=== PATIENT | male | born 1955 | race Caucasian/White ===

== ENCOUNTER 2020-01-25 07:50 | Outpatient (REF) | payer OTHER, SELFPAY | END 2020-01-25 07:51 | disposition home or self-care (01) | LOC: HO.WFDLDS 07:50 | PROVIDERS: Visit Provider Internal Medicine | DX: Z20.828 Contact with and (suspected) exposure to other viral communicable diseases (principal) | CPT/HCPCS: C9803; U0003 ==

== ENCOUNTER 2020-04-18 07:29 | Outpatient (REF) | payer OTHER, SELFPAY ==
[2020-04-18 12:08] LABS: Cholesterol 193 mg/dL; HDL Cholesterol 35 mg/dL; LDL Cholesterol Calculated 130 mg/dl; Triglycerides 140 mg/dL
[2020-04-18 13:07] LABS: Estimated Average Glucose 163 mg/dL; Hemoglobin A1c % 7.3 %
== END 2020-04-18 07:30 | disposition home or self-care (01) ==
LOC: HO.MANLR 07:29
PROVIDERS: PCP Internal Medicine; Visit Provider Internal Medicine
DX: E11.9 Type 2 diabetes mellitus without complications (principal)
CPT/HCPCS: 36415; 80061; 83036

== ENCOUNTER 2020-08-01 07:34 | Outpatient (REF) | payer OTHER, SELFPAY ==
[2020-08-01 11:56] LABS: Estimated Average Glucose 160 mg/dL; Hemoglobin A1c % 7.2 %
[2020-08-01 12:03] LABS: Cholesterol 201 mg/dL; HDL Cholesterol 34 mg/dL; LDL Cholesterol Calculated 139 mg/dl; Triglycerides 140 mg/dL
== END 2020-08-01 07:35 | disposition home or self-care (01) ==
LOC: HO.MANLDS 07:34
PROVIDERS: Visit Provider Internal Medicine
DX: E11.9 Type 2 diabetes mellitus without complications (principal)
CPT/HCPCS: 36415; 80061; 83036

== ENCOUNTER 2020-12-04 07:34 | Outpatient (REF) | payer OTHER, SELFPAY ==
[2020-12-04 11:54] LABS: Estimated Average Glucose 166 mg/dL; Hemoglobin A1c % 7.4 %
[2020-12-04 12:13] LABS: Alanine Aminotransferase 14 U/L (0-40); Albumin Level 4.4 g/dL (3.5-5.0); Alkaline Phosphatase 65 U/L (39-117); Anion Gap 13 (12-20); Aspartate Amino Transferase 14 U/L (5-37); Bilirubin Total 0.6 mg/dL (0.0-1.0); Blood Urea Nitrogen 12 mg/dL (9-16); Calcium 9.6 mg/dL (8.4-10.2); Carbon Dioxide 23 mmol/L (22-29); Chloride 104 mmol/L (96-108); Cholesterol 195 mg/dL; Estimated Glomerular Filt Rate > 60; Glucose Fasting 188 mg/dL (60-99); HDL Cholesterol 32 mg/dL; LDL Cholesterol Calculated 131 mg/dl; Potassium 4.2 mmol/L (3.3-5.1); Sodium 136 mmol/L (135-145); Total Protein 7.3 g/dL (6.5-8.0); Triglycerides 162 mg/dL
[2020-12-04 12:19] LABS: Creatinine Urine 95.41 mg/dL; Microalbum/Creatinine Ratio Ur 142.5 ug/mg cr
== END 2020-12-04 07:35 | disposition home or self-care (01) ==
LOC: HO.MANLDS 07:34
PROVIDERS: PCP Internal Medicine; Visit Provider Internal Medicine
DX: E11.9 Type 2 diabetes mellitus without complications (principal)
CPT/HCPCS: 36415; 80053; 80061; 82043; 83036

== ENCOUNTER 2021-03-09 08:35 | Outpatient (REF) | payer OTHER, SELFPAY ==
[2021-03-09 11:38] LABS: Estimated Average Glucose 160 mg/dL; Hemoglobin A1c % 7.2 %
== END 2021-03-09 08:36 | disposition home or self-care (01) ==
LOC: HO.MANLDS 08:35
PROVIDERS: PCP Internal Medicine; Visit Provider Internal Medicine
DX: E11.9 Type 2 diabetes mellitus without complications (principal)
CPT/HCPCS: 36415; 83036

== ENCOUNTER 2021-06-25 07:58 | Outpatient (REF) | payer OTHER, SELFPAY ==
[2021-06-25 11:39] LABS: Estimated Average Glucose 169 mg/dL; Hemoglobin A1c % 7.5 %
== END 2021-06-25 07:59 | disposition home or self-care (01) ==
LOC: HO.MANLDS 07:58
PROVIDERS: PCP Internal Medicine; Visit Provider Internal Medicine
DX: E11.9 Type 2 diabetes mellitus without complications (principal)
CPT/HCPCS: 36415; 83036

== ENCOUNTER 2021-09-12 07:33 | Outpatient (REF) | payer OTHER, SELFPAY ==
[2021-09-12 11:38] LABS: Estimated Average Glucose 174 mg/dL; Hemoglobin A1c % 7.7 %
[2021-09-12 11:51] LABS: Alanine Aminotransferase 20 U/L (0-40); Albumin Level 4.4 g/dL (3.5-5.0); Alkaline Phosphatase 64 U/L (39-117); Anion Gap 12 (12-20); Aspartate Amino Transferase 17 U/L (5-37); Bilirubin Total 0.6 mg/dL (0.0-1.0); Blood Urea Nitrogen 14 mg/dL (9-16); Calcium 9.7 mg/dL (8.4-10.2); Carbon Dioxide 24 mmol/L (22-29); Chloride 102 mmol/L (96-108); Cholesterol 208 mg/dL; Estimated Glomerular Filt Rate > 60; Glucose Random 219 mg/dL (60-115); HDL Cholesterol 36 mg/dL; LDL Cholesterol Calculated 147 mg/dl; Potassium 4.3 mmol/L (3.3-5.1); Sodium 134 mmol/L (135-145); Total Protein 7.4 g/dL (6.5-8.0); Triglycerides 125 mg/dL
[2021-09-12 12:18] LABS: Creatinine Urine 84.09 mg/dL; Microalbum/Creatinine Ratio Ur 246.1 ug/mg cr
== END 2021-09-12 07:34 | disposition home or self-care (01) ==
LOC: HO.MANLDS 07:33
PROVIDERS: Visit Provider Internal Medicine
DX: E11.9 Type 2 diabetes mellitus without complications (principal)
CPT/HCPCS: 36415; 80053; 80061; 82043; 83036

== ENCOUNTER 2021-12-31 07:54 | Outpatient (REF) | payer OTHER, SELFPAY ==
[2021-12-31 11:45] LABS: Estimated Average Glucose 166 mg/dL; Hemoglobin A1c % 7.4 %
== END 2021-12-31 07:55 | disposition home or self-care (01) ==
LOC: HO.MANLDS 07:54
PROVIDERS: Visit Provider Internal Medicine
DX: E11.9 Type 2 diabetes mellitus without complications (principal)
CPT/HCPCS: 36415; 83036

== ENCOUNTER 2022-05-17 07:38 | Outpatient (REF) | payer OTHER, SELFPAY ==
[2022-05-17 12:19] LABS: Estimated Average Glucose 206 mg/dL; Hemoglobin A1c % 8.8 %
[2022-05-17 12:45] LABS: Alanine Aminotransferase 15 U/L (0-40); Albumin Level 4.2 g/dL (3.5-5.0); Alkaline Phosphatase 70 U/L (39-117); Anion Gap 14 (12-20); Aspartate Amino Transferase 15 U/L (5-37); Bilirubin Total 0.9 mg/dL (0.0-1.0); Blood Urea Nitrogen 12 mg/dL (9-16); Calcium 9.4 mg/dL (8.4-10.2); Carbon Dioxide 24 mmol/L (22-29); Chloride 102 mmol/L (96-108); Cholesterol 214 mg/dL; Estimated Glomerular Filt Rate > 60; Glucose Fasting 209 mg/dL (60-99); HDL Cholesterol 37 mg/dL; LDL Cholesterol Calculated 145 mg/dl; Potassium 4.5 mmol/L (3.3-5.1); Sodium 135 mmol/L (135-145); Total Protein 6.9 g/dL (6.5-8.0); Triglycerides 164 mg/dL
[2022-05-17 13:06] LABS: Creatinine Urine 50.05 mg/dL; Microalbum/Creatinine Ratio Ur 215.7 ug/mg cr
== END 2022-05-17 07:39 | disposition home or self-care (01) ==
LOC: HO.MANLDS 07:38
PROVIDERS: Visit Provider Internal Medicine
DX: E11.9 Type 2 diabetes mellitus without complications (principal)
CPT/HCPCS: 36415; 80053; 80061; 82043; 83036

== ENCOUNTER 2022-09-16 07:47 | Outpatient (REF) | payer OTHER, SELFPAY ==
[2022-09-16 14:49] LABS: Estimated Average Glucose 160 mg/dL; Hemoglobin A1c % 7.2 %
[2022-09-16 14:54] LABS: Alanine Aminotransferase 19 U/L (0-40); Albumin Level 4.1 g/dL (3.5-5.0); Alkaline Phosphatase 67 U/L (39-117); Anion Gap 16 (12-20); Aspartate Amino Transferase 19 U/L (5-37); Bilirubin Total 0.6 mg/dL (0.0-1.0); Blood Urea Nitrogen 15 mg/dL (9-16); Calcium 9.8 mg/dL (8.4-10.2); Carbon Dioxide 20 mmol/L (22-29); Chloride 104 mmol/L (96-108); Cholesterol 182 mg/dL; Estimated Glomerular Filt Rate > 60; Glucose Random 187 mg/dL (60-115); HDL Cholesterol 36 mg/dL; LDL Cholesterol Calculated 114 mg/dl; Potassium 4.5 mmol/L (3.3-5.1); Sodium 135 mmol/L (135-145); Total Protein 7.1 g/dL (6.5-8.0); Triglycerides 160 mg/dL
== END 2022-09-16 07:48 | disposition home or self-care (01) ==
LOC: HO.MANLDS 07:47
PROVIDERS: Visit Provider Internal Medicine
DX: E11.9 Type 2 diabetes mellitus without complications (principal)
CPT/HCPCS: 36415; 80053; 80061; 83036

== ENCOUNTER 2022-12-16 07:47 | Outpatient (REF) | payer OTHER, SELFPAY ==
[2022-12-16 13:29] LABS: Estimated Average Glucose 174 mg/dL; Hemoglobin A1c % 7.7 % (<6.0)
[2022-12-16 13:52] LABS: Alanine Aminotransferase 16 U/L (0-40); Albumin Level 4.4 g/dL (3.5-5.0); Alkaline Phosphatase 60 U/L (39-117); Anion Gap 18 (12-20); Aspartate Amino Transferase 21 U/L (5-37); Bilirubin Total 0.6 mg/dL (0.0-1.0); Blood Urea Nitrogen 20 mg/dL (9-16); Calcium 9.6 mg/dL (8.4-10.2); Carbon Dioxide 21 mmol/L (22-29); Chloride 100 mmol/L (96-108); Cholesterol 245 mg/dL (<200); Estimated Glomerular Filt Rate > 60; Glucose Random 166 mg/dL (60-115); HDL Cholesterol 38 mg/dL (>40); LDL Cholesterol Calculated 152 mg/dL (<100); Potassium 4.1 mmol/L (3.3-5.1); Sodium 135 mmol/L (135-145); Total Protein 7.7 g/dL (6.5-8.0); Triglycerides 279 mg/dL (<150)
== END 2022-12-16 07:48 | disposition home or self-care (01) ==
LOC: HO.MANLDS 07:47
PROVIDERS: Visit Provider Internal Medicine
DX: E11.9 Type 2 diabetes mellitus without complications (principal)
CPT/HCPCS: 36415; 80053; 80061; 83036

== ENCOUNTER 2022-12-27 09:14 | Outpatient (REF) | payer OTHER, SELFPAY ==
--- NOTE | ~2022-12-27 | US_ITS ---
EXAMINATION: US RETROPERITONEAL LIMITED (AORTA) CLINICAL INFORMATION: Hypertension. COMPARISON: None available. TECHNIQUE: Blackmon-scale, color Doppler and spectral Doppler evaluation of the abdominal aorta. FINDINGS: The aorta is normal. The measurements of the aorta in maximum AP and transverse dimensions respectively are as follows: Proximal: 2.8 x 2.3 cm. Mid: 1.7 x 1.6 cm. Distal: 1.8 x 2.2 cm. PSV: 150 cm/s. The measurements of the common iliac arteries in maximum AP dimension are as follows: Right Common Iliac Artery: 1.3 cm. Left Common Iliac Artery: 1.3 cm. 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 No gail aneurysm formation is seen.
== END 2022-12-27 09:15 | disposition home or self-care (01) ==
LOC: HO.US 09:14
PROVIDERS: PCP Internal Medicine; Visit Provider Internal Medicine
DX: I10 Essential (primary) hypertension (principal)
CPT/HCPCS: 76775

== ENCOUNTER 2023-03-14 07:36 | Outpatient (REF) | payer OTHER, SELFPAY ==
[2023-03-14 13:13] LABS: MANUAL DIFF FLAG NO
[2023-03-14 13:31] LABS: Basophils Absolute Auto 0.1 X10*3/uL (0.0-0.2); Basophils Percent Auto 0.7 % (0-2); Eosinophils Absolute Auto 0.1 X10*3/uL (0.0-0.4); Eosinophils Percent Auto 1.1 % (0-4); Hematocrit 49.1 % (42.0-52.0); Hemoglobin 16.4 g/dl (14.0-18.0); Imm Gran Abs Auto 0.06 X10*3/uL (0.00-0.03); Imm Gran Pct Auto 0.6 % (0.0-0.4); Lymphocytes Absolute Auto 1.8 X10*3/uL (1.2-4.9); Lymphocytes Percent Auto 16.1 % (20-40); Mean Corpuscular HGB Conc 33.4 g/dl (31.0-36.0); Mean Corpuscular Hemoglobin 30.7 pg (27.0-33.0); Mean Corpuscular Volume 91.9 fL (80.0-98.0); Mean Platelet Volume 9.4 fL (9.4-12.4); Monocytes Absolute Auto 0.8 X10*3/uL (0.1-1.2); Monocytes Percent Auto 7.6 % (2-11); Neutrophils Absolute Auto 8.1 x10*3/uL (2.0-8.3); Neutrophils Percent Auto 73.9 % (45-73); Platelet Count 348 X10*3/uL (160-400); Red Blood Count 5.34 X10*6/uL (4.60-5.80); Red Cell Distribution Width 13.2 % (11.0-16.0); White Blood Count 10.9 X10*3/uL (4.8-10.8)
[2023-03-14 13:36] LABS: Estimated Average Glucose 180 mg/dL; Hemoglobin A1c % 7.9 % (<6.0)
[2023-03-14 13:53] LABS: Alanine Aminotransferase 18 U/L (0-40); Albumin Level 4.3 g/dL (3.5-5.0); Alkaline Phosphatase 65 U/L (39-117); Anion Gap 16 (12-20); Aspartate Amino Transferase 19 U/L (5-37); Bilirubin Total 0.7 mg/dL (0.0-1.0); Blood Urea Nitrogen 24 mg/dL (9-16); Calcium 9.7 mg/dL (8.4-10.2); Carbon Dioxide 21 mmol/L (22-29); Chloride 100 mmol/L (96-108); Cholesterol 225 mg/dL (<200); Estimated Glomerular Filt Rate > 60; Glucose Random 147 mg/dL (60-115); HDL Cholesterol 40 mg/dL (>40); LDL Cholesterol Calculated 144 mg/dL (<100); Potassium 4.1 mmol/L (3.3-5.1); Sodium 133 mmol/L (135-145); Total Protein 7.7 g/dL (6.5-8.0); Triglycerides 205 mg/dL (<150)
[2023-03-14 14:17] LABS: Creatinine Urine 53.63 mg/dL; Microalbum/Creatinine Ratio Ur 52.2 ug/mg cr (<30)
== END 2023-03-14 07:37 | disposition home or self-care (01) ==
LOC: HO.MANLDS 07:36
PROVIDERS: Visit Provider Internal Medicine
DX: E11.21 Type 2 diabetes mellitus with diabetic nephropathy (principal); E78.5 Hyperlipidemia, unspecified
CPT/HCPCS: 36415; 80053; 80061; 82043; 82570; 83036; 85025

== ENCOUNTER 2023-07-30 07:52 | Outpatient (REF) | payer OTHER, SELFPAY ==
[2023-07-30 13:49] LABS: Estimated Average Glucose 192 mg/dL; Hemoglobin A1c % 8.3 % (<6.0)
== END 2023-07-30 07:53 | disposition home or self-care (01) ==
LOC: HO.MANLDS 07:52
PROVIDERS: Visit Provider Internal Medicine
DX: E78.5 Hyperlipidemia, unspecified (principal); E11.21 Type 2 diabetes mellitus with diabetic nephropathy
CPT/HCPCS: 36415; 83036

== ENCOUNTER 2023-11-17 07:31 | Outpatient (REF) | payer OTHER, SELFPAY ==
[2023-11-17 13:14] LABS: MANUAL DIFF FLAG NO
[2023-11-17 13:28] LABS: Basophils Absolute Auto 0.1 X10*3/uL (0.0-0.2); Basophils Percent Auto 0.8 % (0-2); Eosinophils Absolute Auto 0.2 X10*3/uL (0.0-0.4); Eosinophils Percent Auto 2.1 % (0-4); Hematocrit 48.9 % (42.0-52.0); Hemoglobin 16.5 g/dl (14.0-18.0); Imm Gran Abs Auto 0.04 X10*3/uL (0.00-0.03); Imm Gran Pct Auto 0.5 % (0.0-0.4); Lymphocytes Absolute Auto 1.7 X10*3/uL (1.2-4.9); Lymphocytes Percent Auto 23.5 % (20-40); Mean Corpuscular HGB Conc 33.7 g/dl (31.0-36.0); Mean Corpuscular Hemoglobin 30.7 pg (27.0-33.0); Mean Corpuscular Volume 91.1 fL (80.0-98.0); Monocytes Absolute Auto 0.6 X10*3/uL (0.1-1.2); Neutrophils Absolute Auto 4.7 x10*3/uL (2.0-8.3); Neutrophils Percent Auto 65.1 % (45-73); Platelet Count 333 X10*3/uL (160-400); Red Blood Count 5.37 X10*6/uL (4.60-5.80); Red Cell Distribution Width 13.3 % (11.0-16.0); White Blood Count 7.3 X10*3/uL (4.8-10.8)
[2023-11-17 13:40] LABS: Estimated Average Glucose 163 mg/dL; Hemoglobin A1c % 7.3 % (<6.0)
[2023-11-17 14:01] LABS: Alanine Aminotransferase 17 U/L (0-40); Albumin Level 4.4 g/dL (3.5-5.0); Alkaline Phosphatase 60 U/L (39-117); Anion Gap 14 (12-20); Aspartate Amino Transferase 19 U/L (5-37); Bilirubin Total 0.6 mg/dL (0.0-1.0); Blood Urea Nitrogen 20 mg/dL (9-16); Carbon Dioxide 22 mmol/L (22-29); Chloride 103 mmol/L (96-108); Cholesterol 238 mg/dL (<200); Estimated Glomerular Filt Rate > 60; Glucose Random 118 mg/dL (60-115); HDL Cholesterol 37 mg/dL (>40); LDL Cholesterol Calculated 156 mg/dL (<100); Potassium 4.6 mmol/L (3.3-5.1); Sodium 134 mmol/L (135-145); Total Protein 7.8 g/dL (6.5-8.0); Triglycerides 229 mg/dL (<150)
[2023-11-17 14:47] LABS: Creatinine Urine 42.54 mg/dL; Microalbum/Creatinine Ratio Ur 63.4 ug/mg cr (<30)
== END 2023-11-17 07:32 | disposition home or self-care (01) ==
LOC: HO.MANLDS 07:31
PROVIDERS: Visit Provider Internal Medicine
DX: E11.21 Type 2 diabetes mellitus with diabetic nephropathy (principal); E78.5 Hyperlipidemia, unspecified
CPT/HCPCS: 36415; 80053; 80061; 82043; 82570; 83036; 85025

== ENCOUNTER 2024-03-24 07:00 | Outpatient (REF) | payer OTHER, SELFPAY ==
--- OUTSIDE RECORDS SUMMARY | 2024-03-24 07:03 | XMS_ITS | Clinical Summary ---
Author Organization [facility] Facility Address [address] [facility] [address] [place] [id number] Care Team Providers Care Clerical Warehouseman Name Role Phone Abram Valdez DO Primary Care Provider [phone] Social History Tobacco Use Types Packs/Day Years Used Date Smoking Tobacco: Never Assessed Sex and Gender Information Value Date Recorded Sex Assigned at Not on file Legal Sex Male 4:02 PM EDT Gender Identity Not on file Sexual Orientation Not on file Plan of Treatment Health Maintenance Due Date Last Done Comments Colorectal Cancer Screening: Annual FOBT 2005 Colorectal Cancer Screening: Colonoscopy 2005 Colorectal Cancer Screening: Sigmoidoscopy 2005 Pneumococcal Vaccine: 65+ Ye ars (1 of 1 - PCV) 2021 Influenza Vaccine (#1) 2023 Hepatitis B Vaccine Aged Out No longe r eligible based on patient's age to complete this topic Insurance [employer] Care Teams Clerical Warehouseman Relationship Specialty Start Date End Date Abram Valdez DO [address] [place] [id number] PCP - General Internal Medicine 09/26/21
--- OUTSIDE RECORDS SUMMARY | 2024-03-24 07:03 | XMS_ITS | Data Portability ---
Author Organization [facility] Address [address] [place] [address] Assessment Encounter Date Assessment Date Assessment LastModified by Organization Details LastModified Time 12/18/2022 12/18/2022 [id number] [place] [id number] (TEAM LEAD) [facility] MODERATE MUST MEET 2 OUT OF 3 ELEMENTS: PROBLEMS, DATA OR RISK ELEMENT 1: PROBLEMS ADDRESSED 1 OR MORE CHRONIC ILLNESS WITH EXACERBATION OR 2 OR MORE STABLE CHRONIC ILLNESSES OR 1 UNDIAGNOSED NEW PROBLEM OR 1 ACUTE ILLNESS W/SYMPTOMS OR 1 ACUTE COMPLICATED INJURY ELEMENT 2: DATA MUST MEET 1 OF 3 CATEGORIES CATEGORY 1: REVIEW OF PRIOR EXTERNAL NOTES, REVIEW OF RESULTS, ORDERING OF EACH TEST, ASSESSMENT REQUIRING INDEPENDENT HISTORIAN OR CATEGORY 2: INDEPENDENT INTERPRETATION OF TESTS BY ANOTHER PHYSICIAN OR SPECIALIST OR CATEGORY 3: DISCUSSION OF MGT OR TEST INTERPRETATION W/EXTERNAL PHYSICIAN OR SPECIALIST ELEMENT 3: RISK RISK OF COMPLICATIONS AND/OR MORBIDITY OR MORTALITY OF PATIENT MANAGEMENT PROVIDER MUST THOROUGHLY DOCUMENT EACH ELEMENT THAT IS COVERED Not available 12/18/2022 16:10:26 03/10/2023 03/10/2023 [id number] [place] [id number] (TEAM LEAD) [facility] MODERATE MUST MEET 2 OUT OF 3 ELEMENTS: PROBLEMS, DATA OR RISK ELEMENT 1: PROBLEMS ADDRESSED 1 OR MORE CHRONIC ILLNESS WITH EXACERBATION OR 2 OR MORE STABLE CHRONIC ILLNESSES OR 1 UNDIAGNOSED NEW PROBLEM OR 1 ACUTE ILLNESS W/SYMPTOMS OR 1 ACUTE COMPLICATED INJURY ELEMENT 2: DATA MUST MEET 1 OF 3 CATEGORIES CATEGORY 1: REVIEW OF PRIOR EXTERNAL NOTES, REVIEW OF RESULTS, ORDERING OF EACH TEST, ASSESSMENT REQUIRING INDEPENDENT HISTORIAN OR CATEGORY 2: INDEPENDENT INTERPRETATION OF TESTS BY ANOTHER PHYSICIAN OR SPECIALIST OR CATEGORY 3: DISCUSSION OF MGT OR TEST INTERPRETATION W/EXTERNAL PHYSICIAN OR SPECIALIST ELEMENT 3: RISK RISK OF COMPLICATIONS AND/OR MORBIDITY OR MORTALITY OF PATIENT MANAGEMENT PROVIDER MUST THOROUGHLY DOCUMENT EACH ELEMENT THAT IS COVERED Not available 03/10/2023 15:43:37 11/17/2023 11/17/2023 [id number] [place] [id number] (TEAM LEAD) MDM MODERATE MUST MEET 2 OUT OF 3 ELEMENTS: PROBLEMS, DATA OR RISK ELEMENT 1: PROBLEMS ADDRESSED 1 OR MORE CHRONIC ILLNESS WITH EXACERBATION OR 2 OR MORE STABLE CHRONIC ILLNESSES OR 1 UNDIAGNOSED NEW PROBLEM OR 1 ACUTE ILLNESS W/SYMPTOMS OR 1 ACUTE COMPLICATED INJURY ELEMENT 2: DATA MUST MEET 1 OF 3 CATEGORIES CATEGORY 1: REVIEW OF PRIOR EXTERNAL NOTES, REVIEW OF RESULTS, ORDERING OF EACH TEST, ASSESSMENT REQUIRING INDEPENDENT HISTORIAN OR CATEGORY 2: INDEPENDENT INTERPRETATION OF TESTS BY ANOTHER PHYSICIAN OR SPECIALIST OR CATEGORY 3: DISCUSSION OF MGT OR TEST INTERPRETATION W/EXTERNAL PHYSICIAN OR SPECIALIST ELEMENT 3: RISK RISK OF COMPLICATIONS AND/OR MORBIDITY OR MORTALITY OF PATIENT MANAGEMENT PROVIDER MUST THOROUGHLY DOCUMENT EACH ELEMENT THAT IS COVERED Not available 11/17/2023 16:43:36 03/22/2024 03/22/2024 [id number] [place] [id number] (TEAM LEAD) MDM MODERATE MUST MEET 2 OUT OF 3 ELEMENTS: PROBLEMS, DATA OR RISK ELEMENT 1: PROBLEMS ADDRESSED 1 OR MORE CHRONIC ILLNESS WITH EXACERBATION OR 2 OR MORE STABLE CHRONIC ILLNESSES OR 1 UNDIAGNOSED NEW PROBLEM OR 1 ACUTE ILLNESS W/SYMPTOMS OR 1 ACUTE COMPLICATED INJURY ELEMENT 2: DATA MUST MEET 1 OF 3 CATEGORIES CATEGORY 1: REVIEW OF PRIOR EXTERNAL NOTES, REVIEW OF RESULTS, ORDERING OF EACH TEST, ASSESSMENT REQUIRING INDEPENDENT HISTORIAN OR CATEGORY 2: INDEPENDENT INTERPRETATION OF TESTS BY ANOTHER PHYSICIAN OR SPECIALIST OR CATEGORY 3: DISCUSSION OF MGT OR TEST INTERPRETATION W/EXTERNAL PHYSICIAN OR SPECIALIST ELEMENT 3: RISK RISK OF COMPLICATIONS AND/OR MORBIDITY OR MORTALITY OF PATIENT MANAGEMENT PROVIDER MUST THOROUGHLY DOCUMENT EACH ELEMENT THAT IS COVERED Not available 03/22/2024 10:13:05 Plan of Treatment Reminders Order Date Submit Date Provider Last Modified By Organization Details Last Modified Time Details Appointments None recorded. Lab HbA1c (hemoglobi n A1c), blood 2023 024 [facility], [address] [place] [address], [place], [address], 4 11:19:12 CMP, serum or plasma 2023 024 [facility], [address] [place] [address], [place], [address], 4 11:19:12 microalbum in, urine 2023 024 [facility], [address] [place] [address], [address], 4 11:19:13 HbA1c (hemoglobi n A1c), blood 2023 024 [facility], [address] [place] [address], [address], 4 11:15:13 CMP, serum or plasma 2023 024 [facility], [address] [place] [address], [address], 4 11:19:12 HbA1c (hemoglobi n A1c), blood 2023 024 [facility], [address] [place] [address], [address], 4 11:15:13 lipid panel, serum 2023 024 [facility], [address] [place] [address], [address], 4 11:19:13 CBC w/ auto diff 2023 024 [facility], [address] [place] [address], [address], 4 11:19:13 lipid panel, serum 2023 024 [facility], [address] [place] [address], [address], 4 11:19:13 CBC w/ auto diff 2023 024 [facility], [address] [place] [address], [address], 4 11:19:13 TSH, serum or plasma 2023 024 [facility], [address] [place] [address], [address], 4 15:34:40 HbA1c (hemoglobi n A1c), blood 2023 024 [facility], [address] [place] [address], [address], 4 11:31:51 CMP, serum or plasma 2023 024 [facility], [address] [place] [address], [address], 4 15:34:40 lipid panel, blood 2023 024 [facility], [address] [place] [address], [address], 4 15:34:40 microalbum in, urine 2023 024 [facility], [address] [place] [address], [place], [address], 4 15:34:40 HbA1c (hemoglobi n A1c), blood 2024 025 [facility], [address] [place] [address], [address], 5 10:22:30 CMP, serum or plasma 2024 025 [facility], [address] [place] [address], [address], 5 10:22:29 Referral None recorded. Procedures None recorded. Surgeries None recorded. Imaging exercise stress test - progressiv e exertional dyspnea 2024 025 [facility], [address] [place] [address], [address], 5 10:31:09 Medication Orders Jardiance 25 mg tablet 2022 023 [facility], [address], [place], [address], 3 16:14:45 glimepirid e 4 mg tablet 2023 024 [id number], [address] [place], [address], 4 15:32:13 nitroglyce rin 0.4 mg sublingual tablet 2024 025 [id number], [address] [place], [address], 10:15:52 Patient TargetsNo targets recorded. Patient Instructions Encounter Date Encounter Id Patient Instructions Last Modified By Organization Details Last Modified Time 12/18/2022 [id number] learning about type 2 diabetes Not available 12/18/2022 16:13:29 type 2 diabetes: care instructions Not available 12/18/2022 16:13:29 08/01/2023 [id number] learning about type 2 diabetes Not available 08/01/2023 15:32:11 type 2 diabetes: care instructions Not available 08/01/2023 15:32:11 03/22/2024 [id number] high cholesterol : care instructions Not available 03/22/2024 10:15:50 Reason for Referral None Reported. Results Created Date Observation Date Name Description Value Unit Range Abnormal Flag Note LastModifiedBy Organization Detail LastModifiedTime 12/31/1912/27/2022 US, abdom inal aorta No observ ation record ed. [email or web address] [facility] [address] [facility], [place], [address], 01/15/2023 06:54:51 Result Notes None recorded. Problems Name Problem SNOMED Code Status Onset Date Resolution Date Notes Provider Name and Address Organization Details Recorded Time Diabetic peripheral neuropathy 913917341 Active 2021 Abram Valdez, DO [address] [place] [address], [phone], [facility] 2 16:02:07 Erectile dysfunctio n 989078946 Active 2021 Abram Valdez DO [address] [place] [address], [phone], [facility] 2 16:21:24 Microalbum inuric diabetic nephropath y 534848974 Active 2021 Abram Valdez, DO [address] [place] [address], [phone], [facility] 2 16:23:31 Contractur e of joint of finger 200374722 Active 2022 Abram Valdez [address], [address], [facility] 3 16:28:46 Hyperlipid emia 29443976 Active 2022 Abram Valdez, [address], [address], [facility] 3 16:31:38 Depressive disorder 08448990 Active 2022 Abram Valdez [address], [address], [facility] 3 16:32:43 COVID-19 171974668 Active 2023 HIMANSHU HEALY [address] [place] [address], [address], [facility] 4 09:57:50 Chest pain on exertion 23044259 Active 2024 Abram Valdez [address], [address], [facility] 5 10:13:16 Hypertrigl yceridemia 902134946 Active 2017 Not Available [facility] 0 12:01:56 Type 2 diabetes mellitus 68966393 Active 2017 Not Available [facility] 0 12:01:56 Disorder of vitamin B12 770640898 Active 2017 Not Available [facility] 0 12:01:56 Tremor 46181773 Active 2017 Not Available [facility] 0 12:01:56 Restless legs 56367261 Active 2017 Not Available [facility] 0 12:01:56 Hypertensi ve disorder 25468921 Active 2017 Not Available [facility] 0 12:01:56 Subclinica l hypothyroi dism 89560868 Active 2017 Not Available [facility] 0 12:01:56 Degenerati on of lumbar interverte bral disc 18314351 Active 2017 Not Available [facility] 0 12:01:56 Spinal stenosis of lumbar region 87230483 Active 2017 Not Available [facility] 0 12:01:56 Problem Notes None recorded. Procedures Surgical History None recorded. Imaging Results Imaging Date Name Status LastModified by Organiz ation Details LastModified Time 12/27/2022 US, abdominal aorta completed [facility] [address] [place], [address], 01/15/2023 06:54:51 Procedure Notes None recorded. Medical Equipment None Reported. Allergies No known drug allergies Medications Name Sig Start Date Stop Date Status Note LastModified by Organization Details LastModified Time Prescript ion - Renewal 09/21 completed [facility] Not Available Not Available Not Available cyclobenz aprine 10 mg tablet 07/11 completed Not Available Not Available Not Available amoxicill in 500 mg capsule TAKE 1 CAPSULE BY MOUTH THREE TIMES A DAY 03/22 completed Not Available Not Available Not Available nabumeton e 750 mg tablet TAKE 1 TABLET BY MOUTH TWICE A DAY 07/18 completed Not Available Not Available Not Available sildenafi l 50 mg tablet TAKE 1 TABLET BY MOUTH EVERY DAY FOR 10 DAYS 04/21 completed Not Available Not Available Not Available tramadol 50 mg tablet Take 1 tablet every 6 hours by oral route for 30 days. 11/14 completed Not Available Not Available Not Available sildenafi l 100 mg tablet TAKE 1 TABLET BY MOUTH EVERY DAY FOR 30 DAYS active Not Available Not Available No t Available glimepiri de 2 mg tablet TAKE 1 TABLET BY MOUTH EVERY DAY 07/31 completed Not Available Not Available Not Available carvedilo l 3.125 mg tablet TAKE 1 TABLET BY MOUTH TWICE A DAY active Not Available Not Available No t Available oxycodone -acetamin ophen 5 mg-325 mg tablet TAKE 1 TABLET EVERY 4 TO 6 HOURS NEEDED 11/16 completed Not Available Not Available Not Available gemfibroz il 600 mg tablet TAKE 1 TABLET BY MOUTH TWICE A DAY active Not Available Not Available No t Available cyanocoba armando (vit B-12) 1,000 mcg/mL injection solution INJECT 1 ML INTO THE MUSCLE EVERY 2 WEEKS active Not Available Not Available No t Available metformin 1,000 mg tablet TAKE 1 TABLET BY MOUTH TWICE A DAY active Not Available Not Available No t Available glimepiri de 4 mg tablet TAKE 1 TABLET BY MOUTH EVERY DAY active Not Available Not Available No t Available nitroglyc dany 0.4 mg sublingua l tablet Place 1 tablet by sublingu al route as needed for 30 days. 2024 active Not Available Not Available Not Avai lable gabapenti n 300 mg capsule Take one tablet 3 x day and 2 tablets at nightime . 08/26 completed Not Available Not Available Not Available lisinopri l 5 mg tablet TAKE 1 TABLET BY MOUTH EVERY DAY active Not Available Not Available No t Available ibuprofen 600 mg tablet 1 TABLET EVERY 4 TO 6 HOURS NEEDED active Not Available Not Available No t Available ondansetr on 4 mg disintegr ating tablet PLACE 1 TAB UNDER TONGUE TO DISSOLVE TO HELP NAUSEA EVERY 4-6 HOURS NEEDED NAUSEA FOR 3 DAYS 11/16 completed Not Available Not Available Not Available oxycodone 5 mg tablet 02/03 completed Not Available Not Available Not Available duloxetin e 30 mg capsule,d elayed release TAKE 1 CAPSULE BY MOUTH EVERY DAY active Not Available Not Available No t Available chlorhexi dine gluconate 0.12 % mouthwash SWISH AND SPIT 15 ML IN THE MORNING AND IN THE EVENING FOR 2 WEEKS active Not Available Not Available No t Available Fish Oil 6000 mg everyday . active Not Available Not Available No t Available Januvia 100 mg tablet 1 po daily 09/16 completed Not Available Not Available Not Available Jardiance 10 mg tablet Take 1 tablet every day by oral route for 90 days. 01/06 completed Not Available Not Available Not Available Jardiance 25 mg tablet TAKE ONE TABLET PO QD 2023 active Not Available Not Available Not Avai labmilana Paxlovid 300 mg (150 mg x 2)-100 mg tablets in a dose pack TAKE 3 TABLETS BY MOUTH TWICE A DAY FOR 5 DAYS 11/16 completed Not Available Not Available Not Available Vitals Date Recorded Body height Body mass index (BMI) Body weight Heart rate Oxygen saturation Oxygen saturation in Arterial blood by Pulse oximetry Systolic blood pressure Diastolic blood pressure Provider Name and Address Organization Details Last Updated DateTime 3 179.71 cm 30.9 kg/m2 20556.3 2 g 84 /min 97 % 97 % 120 mm[Hg] 70 mm[Hg] Jaylin Sweeney [facility] 3 15:38:32 Date Recorded Body height Body mass index (BMI) Body weight Heart rate Oxygen saturation Oxygen saturation in Arterial blood by Pulse oximetry Systolic blood pressure Diastolic blood pressure Provider Name and Address Organization Details Last Updated DateTime 4 179.71 cm 30.6 kg/m2 10030.1 4 g 72 /min 98 % 98 % 102 mm[Hg] 62 mm[Hg] Maritza Christiansen [facility] 4 15:28:48 Date Recorded Body height Body mass index (BMI) Body weight Heart rate Oxygen saturation Oxygen saturation in Arterial blood by Pulse oximetry Systolic blood pressure Diastolic blood pressure Provider Name and Address Organization Details Last Updated DateTime 4 179.71 cm 31 kg/m2 645264. 91 g 71 /min 97 % 97 % 100 mm[Hg] 68 mm[Hg] Barbara Pereira [facility] 4 15:05:01 Date Recorded Body height Body mass index (BMI) Body weight Heart rate Oxygen saturation Oxygen saturation in Arterial blood by Pulse oximetry Systolic blood pressure Diastolic blood pressure Provider Name and Address Organization Details Last Updated DateTime 4 179.71 cm 31.6 kg/m2 357022. 28 g 73 /min 98 % 98 % 132 mm[Hg] 68 mm[Hg] Jaylin Sweeney [facility] 4 16:27:24 Date Recorded Body height Body mass index (BMI) Body weight Heart rate Oxygen saturation Oxygen saturation in Arterial blood by Pulse oximetry Systolic blood pressure Diastolic blood pressure Provider Name and Address Organization Details Last Updated DateTime 5 179.71 cm 31 kg/m2 474955. 55 g 70 /min 98 % 98 % 116 mm[Hg] 76 mm[Hg] Dick Chavarria [facility] 5 09:34:01 Social History Question Answer Notes LastModified by Organizat ion Details LastModified Time Tobacco Smoking Status Former Smoker Not Available [facility] 12/21/2019 03:36:24 What Was The Date Of Your Most Recent Tobacco Screening? 03/22/2024 [email or web address] Information not available 03/22/2024 Do You Or Have You Ever Used Any Other Forms Of Tobacco Or Nicotine? No Information not available 01/01/2022 Sex: Unknown Functional Status None recorded. Mental Status None recorded. Family History Nothing Reported. Medical History No medical history recorded. Immunizations Vaccine Type Date Status Note Provider Nam e and Address Organization Details Recorded Time COVID-19, mRNA, LNP-S, PF, 100 mcg/0.5mL dose or 50 mcg/0.25mL dose 05/08/19 21 completed Abram Valdez, DO [address] [facility], [place], [address], [facility] 08/28/2020 16:16:45 Influenza, split virus, quadrivalent, preservative 01/30/20 20 completed Vanesa smith [facility] 01/31/2020 13:33:40 Tdap 01/30/20 20 ricardo smith [facility] 01/31/2020 13:34:29 zoster recombinant 01/30/20 20 ricardo smith [facility] 01/31/2020 13:35:09 pneumococcal polysaccharide PPV23 01/30/20 20 ricardo smith [facility] 01/31/2020 13:37:05 COVID-19, mRNA, LNP-S, PF, 100 mcg/0.5mL dose or 50 mcg/0.25mL dose 04/16/19 21 completed Abram Valdez [address], [address], [facility] 04/21/2020 16:15:37 Past Encounters Encounter ID Performer Location Encounter Start Date Encounter Closed Date Diagnosis/Indication Diagnosis SNOMED-CT Code Diagnosis ICD10 Code Diagnosis Note [id number] Abram Valdez [facility] [address] [facility], [place] [address] 07/11/2017 16:34:12 07/11/2017 17:02:54 Type 2 diabetes mellitus 68826473 E11.9 a1c 7.5 told must lower glucose before surgery Hypertensive disorder 38 904313 I10 excellent result Spinal rupinder nosis of lumbar region 32752381 M48.062 going for surg in august Subclinica [facility] hypothyroidism 62113080 E03.9 tsh still elevated >5 will consider tx Disorder o f vitamin B12 859227837 E53.8 needs tp restart b12 and gp q 2 weeks [id number] Abram Valdez [facility] [address] [place] [address],[place] [address] 08/26/2017 13:51:15 08/26/2017 15:12:59 Pre-surgery evaluation 635281328 Z01.818 patient is currently stable does have elevated surgical risk due to his diabetes history but this has been fairly well controlled with last A1c of 7.5. Thus his risk category per 2014 [employer] recc is of mild to moderate risk for proposed procedure patient is informed to continue his usual med on the morning of admission (carvedilo l) except he is going to stop his dose of metformin and januvia on the morning of surgery and is to stop his nabumetone and fish oil 1 week prior to surgery. pt understand s and will comply. [id number] Abram Valdez [facility] [address] [facility],[place] [address] 10/24/2017 15:26:51 10/24/2017 16:02:57 Hypertensive disorder 50830764 I10 excellent result Type 2 vern betes mellitus 33463096 E11.9 a1c 6.5 told must continue this effort doing really well!! lost 20# cont [facility]clinica [facility] hypothyroidism 87003654 E03.9 tsh still elevated >5 [place] [id number] Abram Valdez [facility] [address] [facility] [address],[place] [address] 02/03/2018 16:12:22 02/06/2018 10:03:00 Type 2 diabetes mellitus 64880779 E11.9 a1c 5.9 told must continue this effort doing really well!! lost 20# cont still doing fantasstic feels good Disorder o f vitamin B12 310352064 E53.8 needs tp restart b12 and gp q 2 weeks Subclin[facility] hypothyroidism 76770138 E03.9 tsh still elevated >5 will consider tx Hypertensive disorder 38 274442 I10 excellent result Primary er ectile dysfunction 200737681 N52.9 after discussion lets try this warnings given and discussed [id number] Abram Valdez [facility] [address] [facility] [address] [address] 05/12/2018 16:07:34 05/12/2018 16:31:19 Type 2 diabetes mellitus 99858267 E11.9 a1c 6.1 told must continue this effort doing really well!! lost 20# cont admits to eating a sl higher portion lately Hypertensive disorder 38 369190 I10 excellent result Disorder o f vitamin B12 451342353 E53.8 needs tp restart b12 and gp q 2 weeks as his B12 down to 244 [facility]clin[facility] hypothyroidism 01975592 E03.9 tsh still looking good at less than 4 [id number] Abram Valdez [facility] [address] [facility] [address] [address] 09/14/2018 16:24:21 09/15/2018 08:07:52 Degeneration of lumbar intervertebral disc 38297011 M51.36 refill tramadol following [facility] Hypertensive disorder 38 949899 I10 excellent result no change in meds Type 2 vern betes mellitus 75869271 E11.9 a1c is pending and has kept weight off and is eating good walking daily last a11c is 6.1 await lab [id number] Abram Valdez [facility] [address] [facility] [address],[place] [address] 12/16/2018 16:06:54 12/16/2018 16:44:36 Spinal stenosis of lumbar region 56870380 M48.062 surg in august was successful and he is doing well Degenerati on of lumbar intervertebral disc 15284125 M51.36 refill tramadol following [facility] surgery was successful Type 2 vern betes mellitus 29578120 E11.9 a1c is pending and has kept weight off and is eating good walking daily last a11c is 6.1 await lab Hypertensive disorder 38 765185 I10 excellent result no change in meds [id number] Abram Valdez [facility] [address] [facility] [address],[place] [address] 03/22/2019 16:24:32 03/22/2019 16:51:19 Hypertensive disorder 63384071 I10 excellent result no change in meds will need to chk cmp Type 2 vern betes mellitus 00710259 E11.9 a1c is pending and has kept weight off and is eating good walking daily last a1c is 6.1 await lab a1c etc Subclinica l hypothyroidism 26573914 E03.9 tsh still looking good at less than 4 last lab so we will need to rechk tsh [id number] Abram Valdez [facility] [address] [facility] [address] 07/19/2019 16:21:16 07/20/2019 08:05:19 Type 2 diabetes mellitus 81152446 E11.9 a1c is pending and has kept weight off and is eating good walking daily last a1c is 7.2 and 6.1 cmp is stable will follow a1c next visit Subclinica l hypothyroidism 66238382 E03.9 tsh still looking good at less than tsh a nd t4 are excellent Spinal rupinder nosis of lumbar region 24568737 M48.062 surg in last august was successful and he is doing well Disorder o f vitamin B12 123636472 E53.8 restarted b12 and was given syringes [id number] Abram Valdez [facility] [address] [facility],[place] [address] 11/15/2019 15:36:25 11/15/2019 16:38:38 Spinal stenosis of lumbar region 43395355 M48.062 surg in last august was successful and he is doing well Tremor 77479509 R25.1 seems stable overall Hypertriglyceridemia 302 311604 E78.1 Type 2 vern betes mellitus 51639899 E11.9 a1c is pending and has kept weight off and is eating good walking daily last a1c is 7.2 and 6.1 cmp is stable will follow a1c next visit Hypertensive disorder 38 337010 I10 excellent result no change in meds will need to chk cmp [id number] Abram Valdez DO [facility] [address] [facility],[place] [address] 04/21/2020 16:09:04 04/21/2020 16:34:36 Hypertriglyceridemia 202153281 E78.1 will need next visit Hypertensive disorder 38 926289 I10 excellent result no change in meds will need to chk cmp Type 2 vern betes mellitus 99832070 E11.9 a1c is pending and has kept weight off and is eating good walking daily last a1c is 7.2 and 6.1 cmp is stable will follow a1c next visit Subclinica l hypothyroidism 40822640 E03.9 tsh will need to be checked the next visit Degenerati on of lumbar intervertebral disc 80175878 M51.36 refill tramadol following [facility] spine but hes doing ok overall surgery was successful Benign pro static hyperplasia [id number] N40.0 Primary er ectile dysfunction 816659160 N52.9 discussion we will try to wean him off the carvedilol first to see if this is a culprit so he will take half for couple dyas this wknd and then stop come friday and see if things f=dont improve by or fri and call next friday [id number] Abram Valdez DO [facility] Internal Medicine [address],[place] [address] 08/28/2020 16:07:39 08/28/2020 16:51:40 Hypertensive disorder 35018152 I10 excellent result no change in meds will need to chk cmp Type 2 vern betes mellitus 47099492 E11.9 a1c is pending and has kept weight off and is eating good walking daily last a1c is 7.2 and 6.1 cmp is stable will follow a1c next visit Subclinica l hypothyroidism 68413521 E03.9 tsh will need to be checked the next visit Tremor 46125830 R25.1 seems stable overall but when he exerts himself for a period of time his hands start shaking which then abates with rest and nutririon Diabetic p eripheral neuropathy 742511689 E11.40 noted toes are numb but stable has not worsened [id number] Abram Valdez [facility] Internal Medicine [address], [place] [address] 12/05/2020 16:14:08 12/06/2020 08:20:47 Type 2 diabetes mellitus 39526973 E11.9 has kept weight off and is eating good walking daily last a1c is 7.4 from 7.2 and 6.1 cmp is stable will follow a1c next visit Subclinica l hypothyroidism 46664148 E03.9 tsh will need to be checked the next visit Degenerati on of lumbar intervertebral disc 91119240 M51.36 refill tramadol following [facility] but hes doing ok overall surgery was successful Hypertensive disorder 38 830992 I10 excellent result no change in meds will need to chk cmp Renewal of prescription 705622641 Z76.0 [id number] Abram Valdez [facility] Internal Medicine [address] [facility],[address] [employer] [place] [address] 03/13/2021 08:20:23 03/13/2021 16:32:58 Hypertensive disorder 53804940 I10 excellent result no change in meds will need to chk cmp Spinal rupinder nosis of lumbar region 61338517 M48.062 surg in last august was successful and he is doing well Type 2 vern betes mellitus 44411890 E11.9 his current a1c is 7.2 has kept weight off and is eating good walking daily last a1c is 7.4 from 7.2 and 6.1 cmp is [id number] ill follow a1c next visit rechk in june or may Subclinica l hypothyroidism 51040200 E03.9 tsh will need to be checked the next visit Diabetic p eripheral neuropathy 210984526 E11.40 noted toes are numb but stable has not worsened [id number] Abram Valdez [facility] Internal Medicine [address] [facility],[place] [address] 06/25/2021 14:27:09 06/25/2021 16:47:03 Type 2 diabetes mellitus 96817955 E11.9 his current a1c is 7.2 and is stable has kept weight off and is eating good walking daily last a1c is 7.4 from 7.2 and 6.1 cmp is [id number] ill follow a1c next visit rechk in june or may will need diabetic foot exam next labdid have eye exam no issue Hypertensive disorder 38 959640 I10 excellent result no change in meds will need to chk cmp Hypertriglyceridemia 302 992182 E78.1 will need next visit Erectile dysfunction 860 312918 F52.21 [id number] Abram Valdez [facility] Internal Medicine [address],[place] [address] 09/21/2021 15:44:00 09/21/2021 16:43:11 Hypertensive disorder 38379608 I10 excellent result no change in meds will need to chk cmp Hypertriglyceridemia 302 790495 E78.1 will need next visit Type 2 vern betes mellitus 60604115 E11.9 his current a1c is 7.7 and is stable but the prior was 7.5 has kept weight off and is eating good walking daily last a1c is 7.4 from 7.2 and 6.1 cmp is stable NOTE MICROALBUM IN IS ELEVATED COMPARED TO LAST YEAR WE WILL HAVE TO REFER TO DR RICK AND RESTART THE LISINOPRIL [id number] follow a1c next visit rechk will need diabetic foot exam next labdid have eye exam no issue Subclinica l hypothyroidism 72568904 E03.9 tsh will need to be checked the next visit Advance care planning 71 9099766 Z71.89 Microalbum inuric diabetic nephropathy 730085827 E11.21 [id number] Abram Valdez [facility] Internal Medicine [address] [facility],[place] [address] 01/01/2022 15:39:00 01/01/2022 16:44:23 Type 2 diabetes mellitus 66252694 E11.9 his current a1c is now at 7.4 was 7.7 and is stable but the prior was 7.5 has kept weight off and is eating good walking daily last a1c is 7.4 from 7.2 and 6.1 cmp is stable NOTE MICROALBUM IN IS ELEVATED COMPARED TO LAST YEAR WE WILL HAVE TO REFER TO DR RICK AND RESTART THE LISINOPRIL [id number] follow a1c next visit rechk will need diabetic foot exam next labdid have eye exam no issue Hypertensive disorder 38 038768 I10 excellent result no change in meds will need to chk cmp Subclinica l hypothyroidism 47530773 E03.9 tsh will need to be checked the next visit Abdominal aortic aneurysm screening 542788831 Z13.6 we will order when available Screening for malignant neoplasm of colon 545217236 Z12.11 will be scheduling at [facility] when able Active or passive immunization 486239912 Z23 patient advised he is due for flu shot, pneu 13, and 2nd shingles vaccine [id number] Abram Valdez DO [facility] Internal Medicine [address],[place] [address] 05/20/2022 15:49:40 05/20/2022 16:38:47 Type 2 diabetes mellitus 24321697 E11.9 his current a1c is now at 8.8 this is terrible he had been 7.4 was 7.7 and is stable but the prior was 7.5 has kept weight off and is eating good walking daily last a1c is 7.4 from 7.2 and 6.1 cmp is stable NOTE MICROALBUM IN IS ELEVATED COMPARED TO LAST YEAR WE WILL HAVE TO REFER TO DR RICK AND RESTART THE LISINOPRIL a1c being elevated is assoc with the microalbum in also climbingwi ll follow a1c next visit will need diabetic foot exam next labdid have eye exam no issue Hypertensive disorder 38 781482 I10 excellent result no change in meds will need to chk cmp Microalbum inuric diabetic nephropathy 445111214 E11.21 has worsened due to poor diet and elevated a1c he will need to be referred to nephrology in future Contractur e of joint of finger 294567793 M24.549 Hyperlipidemia 32314386 E78.5 Depressive disorder 3548 9007 F32.A [id number] Abram Castañeda DO José Miguel [facility] Internal Medicine [address],[place] [address] 09/16/2022 15:26:02 09/16/2022 16:48:43 Depressive disorder 10929430 F32.A still doing ok with the duloxetine 30 mg Hyperlipidemia 97260808 E78.5 Hypertensive disorder 38 273373 I10 excellent result no change in meds will need to chk cmp Hypertriglyceridemia 302 272553 E78.1 will need next visit Type 2 vern betes mellitus 97467530 E11.9 didnt get jardiance due to misunderst and insur wanted prior auth but apparently all we needed was a 90 day supply order not 30 current a1c is now at 8.8 this is terrible he had been 7.4 was 7.7 and is stable but the prior was 7.5 has kept weight off and is eating good walking daily last a1c is 7.4 from 7.2 and 6.1 cmp is stable NOTE MICROALBUM IN IS ELEVATED COMPARED TO LAST YEAR WE WILL HAVE TO REFER TO DR RICK AND RESTART THE LISINOPRIL a1c being elevated is assoc with the microalbum in also climbingwi ll follow a1c next visit will need diabetic foot exam next labdid have eye exam no issue unable to reach insurance co to get PA for jardiance but they only do by phone and staff waited over 30min on hold without anyone answering. then were hung up on. so we will add glimepirid e in its plave [id number] Abram GoldbergRut Valdez DO [facility] Internal Medicine [address],[place] [address] 12/18/2022 14:58:22 12/18/2022 16:18:49 Hyperlipidemia 88789393 E78.5 will rechk Hypertensive disorder 38 937958 I10 excellent result no change in meds will need to chk cmp Type 2 vern betes mellitus 51772257 E11.9 a1c is 7.7increas e to 25mg jardiance PRIORdidnt get jardiance due to misunderst and insur wanted prior auth but apparently all we needed was a 90 day supply order not 30 current a1c is now at 8.8 this is terrible he had been 7.4 was 7.7 and is stable but the prior was 7.5 has kept weight off and is eating good walking daily last a1c is 7.4 from 7.2 and 6.1 cmp is stable NOTE MICROALBUM IN IS ELEVATED COMPARED TO LAST YEAR WE WILL HAVE TO REFER TO DR RICK AND RESTART THE LISINOPRIL a1c being elevated is assoc with the microalbum in also climbingwi ll follow a1c next visit will need diabetic foot exam next labdid have eye exam no issue unable to reach insurance co to get PA for jardiance but they only do by phone and staff waited over 30min on hold without anyone answering. then were hung up on. so we will add glimepirid e in its plave [id number] Abram Valdez DO [facility] Internal Medicine [address] [facility], [place] [address] 03/10/2023 15:22:53 03/10/2023 16:00:47 Type 2 diabetes mellitus 27610516 E11.21 a1c is pending he hasnt done all lab yet Hyperlipidemia 31278827 E78.5 will rechk Hypertensive disorder 38 402024 I10 excellent result no change in meds will need to chk cmp [id number] Abram Valdez DO [facility] Internal Medicine [address] [facility], [place] [address] 08/01/2023 14:52:47 08/01/2023 15:51:52 Depression screening 234837523 Z13.31 SCREENING NEGATIVE Hypertensive disorder 38 009553 I10 excellent result no change in meds will need to chk cmp Type 2 vern betes mellitus 64383406 E11.21 a1c is 8.3 and is up from 7.9 Subclinica l hypothyroidism 72837642 E03.9 tsh will need to be checked the next visit [id number] Abram Valdez DO [facility] Internal Medicine [address] [facility],[place] [address] 11/17/2023 16:03:31 11/17/2023 16:44:57 Hypertensive disorder 10185544 I10 excellent result no change in meds will need to chk cmp Type 2 vern betes mellitus 95394362 E11.21 a1c is 8.3 and is up from 7.9 Diabetic p eripheral neuropathy 033005465 E11.40 noted toes are numb but stable has not worsened [id number] DO Jolie Bucio Internal Medicine [address],[place] [address] 03/22/2024 09:21:53 03/22/2024 10:31:09 Hypertensive disorder 35714957 I10 excellent result no change in meds will need to chk cmp Type 2 vern betes mellitus 63685067 E11.21 a1c is pending was 8.3 and is up from 7.9 Hyperlipidemia 67668547 E78.5 will rechk Chest pain on exertion 52058835 R07.89 ongoing for many months now seems to have worsenedbe lieve this is real Health Concerns Section Related Observation LastModified by Organization Detai ls LastModified Time None Recorded Concern Status LastModified by Organization Details LastModified Time None Recorded Advance Directives Directive None Recorded Payers Encounter Date Sequence Insurance Name Policy Number Policy Coombs Covered Member ID Coombs Member ID Guarantor Name 12/18/2022 1 [employer] Malcolm Tanner [id number] Malcolm Tanner 03/10/2023 1 [employer] Malcolm Tanner [id number] Malcolm Tanner 08/01/2023 1 [employer] Malcolm Tanner [id number] Malcolm Tanner 11/17/2023 1 [employer] Malcolm Tanner [id number] Malcolm Tanner 03/22/2024 1 [employer] Malcolm Tanner [id number] Malcolm Tanner Notes Date Note Type Note Provider Name and Address Organization Details Recorded Time 3 text/htm l Care Management - DiabetesReported bypatient.Self Care:seeing eye doctor yearly for dilated eye exam; checking feet regularly; normal range of home blood sugars (in the low 100s); no side effects from medications Associated Symptoms:symptoms are usually well controlled; no fatigue; no dizziness; no excessive sweating; no headaches; no confusion; no increased thirst; no increased appetite; no increased urination; no blurred vision; no numbness of feet; no calluses on feetCare Management - HypertensionReported bypatient.Self Care:not under emotional stress Severity:symptoms are improving; does not interfere with daily activities Associated Symptoms:no dizziness; no lightheadedness; no chest pain; no shortness of breath; no palpitations; no edema; no calf muscle cramps; no blurred vision; no confusion; no headaches; no fatigue here for rechk and is doing ok overall Abram GoldbergRut Valdez DO [address] [place], [address], [facility] Internal Medicine 12/18/2022 16:14:25 4 text/htm l Care Management - DiabetesReported bypatient.Self Care:seeing eye doctor yearly for dilated eye exam; checking feet regularly; normal range of home blood sugars (in the low 100s); no side effects from medications Associated Symptoms:symptoms are usually well controlled; no fatigue; no dizziness; no excessive sweating; no headaches; no confusion; no increased thirst; no increased appetite; no increased urination; no blurred vision; no numbness of feet; no calluses on feetNotes:labs are pending his son still getting chemo so there is a lot of stressCare Management - HypertensionReported bypatient.Self Care:not under emotional stress Severity:symptoms are improving; does not interfere with daily activities Associated Symptoms:no dizziness; no lightheadedness; no chest pain; no shortness of breath; no palpitations; no edema; no calf muscle cramps; no blurred vision; no confusion; no headaches; no fatigue here for rechk and is doing okand has yet to get his blood testno cp no sobsleep ok with 4 hours only 'has lost 10lbs has been taking jardiance Abram Valdez DO [address] [place], [address], [facility] Medicine 03/10/2023 15:46:08 4 text/htm l Care Management - DiabetesReported bypatient.Self Care:seeing eye doctor yearly for dilated eye exam; checking feet regularly; normal range of home blood sugars (in the low 100s); no side effects from medications Associated Symptoms:symptoms are usually well controlled; no fatigue; no dizziness; no excessive sweating; no headaches; no confusion; no increased thirst; no increased appetite; no increased urination; no blurred vision; no numbness of feet; no calluses on feetCare Management - HypertensionReported bypatient.Self Care:not under emotional stress Severity:symptoms are improving; does not interfere with daily activities Associated Symptoms:no dizziness; no lightheadedness; no chest pain; no shortness of breath; no palpitations; no edema; no calf muscle cramps; no blurred vision; no confusion; no headaches; no fatigue here for irineo is doing sablut the same and his a1c is up to 8.3 and was7.9wife relates he is over eating but his weight is the same Abram Valdez DO [address] [place], [address], [facility] 08/01/2023 15:33:50 4 text/htm l Care Management - DiabetesReported bypatient.Self Care:seeing eye doctor yearly for dilated eye exam; checking feet regularly; normal range of home blood sugars (in the low 100s); no side effects from medications Associated Symptoms:symptoms are usually well controlled; no fatigue; no dizziness; no excessive sweating; no headaches; no confusion; no increased thirst; no increased appetite; no increased urination; no blurred vision; no numbness of feet; no calluses on feetCare Management - HypertensionReported bypatient.Self Care:not under emotional stress Severity:symptoms are improving; does not interfere with daily activities Associated Symptoms:no dizziness; no lightheadedness; no chest pain; no shortness of breath; no palpitations; no edema; no calf muscle cramps; no blurred vision; no confusion; no headaches; no fatigue here for hillary marc is feeling wellhad a1c todayrelates that he is feeling good Abram Valdez DO [address] [place], [address], [facility] Medicine 11/17/2023 16:43:57 5 text/htm l here for rechkrelates that he has been getting chest pain and tightness while exerting and sobhas been onging for 8+ monthshas been slowly getting worsedid not get lab not checking his sugars either Abram Valdez DO [address] [place], [address], [facility] 03/22/2024 10:23:33
--- OUTSIDE RECORDS SUMMARY | 2024-03-24 07:03 | XMS_ITS | Continuity of Care Document ---
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 Lab HbA1c (hemoglobi n A1c), blood 2024 025 [facility], [address] [place] [address], [address], 10:22:30 CMP, serum or plasma 2024 025 [facility], [address] [place] [address], [address], 10:22:29 Referral None recorded. Procedures None recorded. Surgeries None recorded. Imaging exercise stress test - progressiv e exertional dyspnea 2024 025 [facility], [address], [place], [address], 5 10:31:09 Medication Orders nitroglyce rin 0.4 mg sublingual tablet 2024 025 [id number], [address], [place], [address], 5 10:15:52 Patient TargetsNo targets recorded. Patient Instructions Encounter Date Encounter Id Patient Instructions Last Modified By Organization Details Last Modified Time 03/22/2024 [id number] high cholesterol : care instructions Not available 03/22/2024 10:15:50 Reason for Referral None Reported. Problems Name Problem SNOMED Code Status Onset Date Resolution Date Notes Provider Name and Address Organization Details Recorded Time Diabetic peripheral neuropathy 209024294 Active 2021 Abram Valdez DO [address] [place] [address], [address], [facility] 2 16:02:07 Erectile dysfunctio n 887132176 Active 2021 Abram Valdez DO [address] [place] [address], [address], [facility] 2 16:21:24 Microalbum inuric diabetic nephropath y 021636395 Active 2021 Abram Valdez DO [address] [place] [address], [address], [facility] 2 16:23:31 Contractur e of joint of finger 455342245 Active 2022 Abram Valdez DO [address] [place] [address], [address], [facility] 3 16:28:46 Hyperlipid emia 55942662 Active 2022 Abram Valdez DO [address] [place] [address], [address], [facility] 3 16:31:38 Depressive disorder 42997389 Active 2022 Abram Valdez, DO [address] [place], [address], [facility] 3 16:32:43 COVID-19 860483911 Active 2023 HIMANSHU HEALY [address] [place], [address], [facility] 4 09:57:50 Chest pain on exertion 32156128 Active 2024 Abram Valdez, DO [address] [place], [address], [facility] 5 10:13:16 Hypertrigl yceridemia 836136646 Active 2017 Not Available [facility] 0 12:01:56 Type 2 diabetes mellitus 46021277 Active 2017 Not Available [facility] 0 12:01:56 Disorder of vitamin B12 697870255 Active 2017 Not Available [facility] 0 12:01:56 Tremor 57137413 Active 2017 Not Available [facility] 0 12:01:56 Restless legs 64968661 Active 2017 Not Available [facility] 0 12:01:56 Hypertensi ve disorder 80848109 Active 2017 Not Available [facility] 0 12:01:56 Subclinica l hypothyroi dism 28881612 Active 2017 Not Available [facility] 0 12:01:56 Degenerati on of lumbar interverte bral disc 16389542 Active 2017 Not Available [facility] 0 12:01:56 Spinal stenosis of lumbar region 82533905 Active 2017 Not Available [facility] 0 12:01:56 Problem Notes None recorded. Medical Equipment None Reported. [...] active Not Available Not Available Not Avai liam Paxlovid 300 mg (150 mg x 2)-100 [...] Updated DateTime 5 179.71 cm 31 kg/m2 716014. 55 g 70 /min 98 % 98 % 116 mm[Hg] 76 mm[Hg] [facility] 5 09:34:01 Social History Question Answer Notes LastModified by Organizat ion Details LastModified Time Tobacco Smoking Status Former Smoker Not Available [facility] 12/21/2019 03:36:24 What Was The Date [...] 50 mcg/0.25mL dose 05/08/19 21 completed Abram Valdez DO [address] [place] [address], [address], [facility] 08/28/2020 16:16:45 Influenza, split virus, quadrivalent, preservative 01/30/20 20 completed Vanesa smith [facility] 01/31/2020 13:33:40 Tdap 01/30/20 completed Vanesa smith [facility] 01/31/2020 13:34:29 zoster recombinant [facility]/30/20 [facility] 13:35:09 pneumococcal polysaccharide PPV23 01/30/20 completed Vanesa smith [facility] 01/31/2020 13:37:05 COVID-19, mRNA, LNP-S, PF, 100 mcg/0.5mL dose or 50 mcg/0.25mL dose 04/16/19 21 completed Abram Valdez DO [address] [place] [address], [address], [facility] 04/21/2020 16:15:37 Past Encounters Encounter ID Performer Location Encounter Start Date Encounter Closed Date Diagnosis/Indication Diagnosis SNOMED-CT Code Diagnosis ICD10 Code Diagnosis Note [id number] Abram Valdez DO [facility] [address] [place] [address],[place] [address] 03/22/2024 09:21:53 03/22/2024 10:31:09 Hypertensive disorder 50916498 I10 excellent result no change in meds will need to chk cmp Type 2 vern betes mellitus 20334251 E11.21 a1c is pending was 8.3 and is up from 7.9 Hyperlipidemia 43629933 E78.5 will rechk Chest pain on exertion 60829044 R07.89 ongoing for many months now seems to have worsenedbe lieve this is real Health Concerns Section Related Observation LastModified by Organization Detai ls LastModified Time None Recorded Concern Status LastModified by Organization Details LastModified Time None Recorded Payers Encounter Date Sequence Insurance Name Policy Number Policy Coombs Covered Member ID Coombs Member ID Guarantor Name 03/22/2024 1 [employer] Malcolm Tanner [id number] Malcolm Tanner Notes Date Note Type Note Provider Name a nd Address Organization Details Recorded Time 03/22/2024 text/html here for rechkrelates that he has been getting chest pain and tightness while exerting and sobhas been onging for 8+ monthshas been slowly getting worsedid not get lab not checking his sugars either Abram Valdez, DO [address], [place], [address], [facility] 03/22/2024 10:23:33
[2024-03-24 08:07] LABS: Estimated Average Glucose 131 mg/dL; Hemoglobin A1C 202.2024 umol/L; Hemoglobin A1c % 6.2 % (<6.0); Total Hemoglobin (HGBA1C) 4525.1159 umol/L
[2024-03-24 08:17] LABS: Alanine Aminotransferase 18 U/L (0-40); Albumin Level 4.4 g/dL (3.5-5.0); Alkaline Phosphatase 67 U/L (39-117); Anion Gap 14 (12-20); Aspartate Amino Transferase 24 U/L (5-37); Bilirubin Total 0.6 mg/dL (0.0-1.0); Blood Urea Nitrogen 16 mg/dL (9-16); Calcium 9.3 mg/dL (8.4-10.2); Carbon Dioxide 22 mmol/L (22-29); Chloride 104 mmol/L (96-108); Estimated Glomerular Filt Rate > 60; Glucose Random 154 mg/dL (60-115); Potassium 4.4 mmol/L (3.3-5.1); Sodium 136 mmol/L (135-145); Total Protein 7.9 g/dL (6.5-8.0)
== END 2024-03-24 07:01 | disposition home or self-care (01) ==
LOC: HO.LAB 07:00
PROVIDERS: PCP Internal Medicine; Visit Provider Internal Medicine
DX: E11.21 Type 2 diabetes mellitus with diabetic nephropathy (principal)
CPT/HCPCS: 36415; 80053; 83036

== ENCOUNTER → 2024-03-29 07:49 | Outpatient (REF) | payer OTHER, SELFPAY | LOC: HO.CARD 07:49 | PROVIDERS: PCP Internal Medicine; Visit Provider Internal Medicine | DX: R07.89 Other chest pain (principal) | CPT/HCPCS: 93017 ==

== ENCOUNTER → 2024-03-29 07:52 | Outpatient (BNV) | payer OTHER, SELFPAY | PROVIDERS: PCP Internal Medicine | DX: R06.02 Shortness of breath (principal); R07.9 Chest pain, unspecified; I49.3 Ventricular premature depolarization | CPT/HCPCS: 93016; 93018 ==

== ENCOUNTER 2024-10-01 06:40 | Outpatient (REF) | payer OTHER, SELFPAY ==
--- OUTSIDE RECORDS SUMMARY | 2024-10-01 06:45 | XMS_ITS | Clinical Summary ---
Author Organization [facility] Facility Address [address] [place] [id number] Care Team Providers Care Studio Technician Video Operator Name Role Phone Abram Valdez DO Primary Care Provider [phone] Social History Tobacco Use Types Packs/Day Years [...] Colorectal Cancer Screening: Sigmoidoscopy 2005 Pneumococcal Vaccine: 50+ Ye ars (1 of 1 - PCV) 2006 Influenza Vaccine (#1) 2024 Hepatitis B Vaccine Aged Out No longe r eligible based on patient's age to complete this topic Insurance [employer] Care Teams Studio Technician Video Operator Relationship Specialty Start Date End Date Abram Valdez DO [address] [place] [phone] PCP - General Internal Medicine 8/10/22
--- OUTSIDE RECORDS SUMMARY | 2024-10-01 06:45 | XMS_ITS | Patient Health Record ---
Author Organization [facility] Address [address] [place] [address] Care Team Providers Care Assistant Operator Name Role Phone Ciro Talbot Unavailable [phone] Reason For Referral No Information Plan Of Treatment No Information
[2024-10-01 07:44] LABS: Hemoglobin A1C 168.4447 umol/L; Total Hemoglobin (HGBA1C) 3797.4568 umol/L
[2024-10-01 08:19] LABS: Alanine Aminotransferase 25 U/L (0-40); Albumin Level 4.3 g/dL (3.5-5.0); Alkaline Phosphatase 101 U/L (39-117); Anion Gap 13 (12-20); Aspartate Amino Transferase 25 U/L (5-37); Blood Urea Nitrogen 21 mg/dL (9-16); Calcium 9.3 mg/dL (8.4-10.2); Carbon Dioxide 23 mmol/L (22-29); Chloride 103 mmol/L (96-108); Estimated Glomerular Filt Rate > 60; Potassium 4.8 mmol/L (3.3-5.1); Sodium 134 mmol/L (135-145); Total Protein 7.4 g/dL (6.5-8.0)
== END 2024-10-01 06:41 | disposition home or self-care (01) ==
LOC: HO.LAB 06:40
PROVIDERS: PCP Internal Medicine; Visit Provider Internal Medicine
DX: E11.21 Type 2 diabetes mellitus with diabetic nephropathy (principal)
CPT/HCPCS: 36415; 80053; 83036

== ENCOUNTER 2024-12-01 08:30 | Outpatient (RCR) | payer OTHER, SELFPAY ==
[2024-11-12 09:40] LABS: Glucose, Whole Blood 134 mg/dL (60-115)
== END 2024-12-03 06:18 | disposition home or self-care (01) ==
LOC: HO.CR 08:30
PROVIDERS: PCP Internal Medicine; Visit Provider Thoracic Surgery (Cardiothoracic Vascular Surgery)
DX: Z95.1 Presence of aortocoronary bypass graft (principal)
CPT/HCPCS: 82947; 93798

== ENCOUNTER 2025-01-05 16:07 | Outpatient (REF) | payer OTHER, SELFPAY ==
--- OUTSIDE RECORDS SUMMARY | 2025-01-06 04:40 | XMS_ITS | Encounter Summary ---
Author Organization [facility] Address [address] [place] [id number] Phone Care Team Providers Care Dump Grader Name Role Phone Abram Valdez DO Primary Care Provider Encounter Details Date Type Department Care Team (Latest Contact Info) Description 09/14/2018 Ancillary Orders [facility], X-Ray - [address] [address] Lucia Rivero [address] [place] [address] [email or web address] Arthrodesis status; Spinal stenosis of lumbar region with neurogenic claudication Social History Tobacco Use Types Packs/Day Years Used Date Smoking Tobacco: Some Days Cigarettes Smokeless Tobacco: Never Comments:10 cigarettes a wee k Alcohol Use Standard Drinks/Week Comments Yes 0 (1 standard drink = 0.6 oz pur e alcohol) rarely Sex and Gender Information Value Date Recorded Sex Assigned at Not on file Legal Sex Male 9:53 PM EDT Gender Identity Not on file Sexual Orientation Not on file documented as of this encounter Plan of Treatment Not on file documented as of this encounter Results * XR CERVICAL SPINE 2-3 VIEWS (09/14/2018 11:42 AM EDT) Anatomical Region Laterality Modality C-spine Radiographic Marialuisa ging 09/14/2018 11:5 6 AM EDT Impressions 09/14/2018 12:12 PM EDT Anterior fusion hardware C5-C6-C7. The C5 screws are broken, a new finding when compared with 2015. Mild (3 mm) anterolisthesis C3 on C4 and C4 on C5 on flexion, correcting on extension. POS - [email or web address] Narrative 09/14/2018 12:12 PM EDT XR CERVICAL SPINE 2-3 VIEWS HISTORY: Neck pain, limited range of motion. TECHNIQUE: Lateral views cervical spine in neutral, flexion, extension. COMPARISON: 03/19/2014. FINDINGS: Prevertebral soft tissue outline is normal. There is anterior fusion hardware C5-C6-C7. There is 3 mm anterolisthesis C3 on C4 and C4 on C5 on flexion, correcting with extension. The C5 screws are broken in the anterior aspect of the vertebral body where there is discontinuity of the anterior and posterior portions of the screws, a new finding when compared with 2014. No bone destruction. Stable mild disc space narrowing at C4-C5 and C6-C7. Procedure Note Kourtney Cortez MD - 09/14/2018 XR CERVICAL SPINE 2-3 VIEWS HISTORY: Neck pain, limited range of motion. TECHNIQUE: Lateral views cervical spine in neutral, flexion, extension. COMPARISON: 03/19/2014. FINDINGS: Prevertebral soft tissue outline is normal. There is anterior fusion hardware C5-C6-C7. There is 3 mm anterolisthesisC3 on C4 and C4 on C5 on flexion, correcting with extension. The C5 screws are broken in the anterior aspect of the vertebral bodywhere there is discontinuity of the anterior and posterior portions of thescrews, a new finding when compared with 2014. No bone destruction. Stablemild disc space narrowing at C4- C5 and C6-C7. IMPRESSION: Anterior fusion hardware C5-C6-C7. The C5 screws are broken, a new findingwhen compared with 2014. Mild (3 mm) anterolisthesis C3 on C4 and C4 on C5 on flexion, correctingon extension. POS - [email or web address] Lucia DOWNS IMG XR SPINE Final Resul t * XR LUMBOSACRAL SPINE 2-3 VIEWS (09/14/2018 11:41 AM EDT) Anatomical Region Laterality Modality L-spine Radiographic Marialuisa ging 09/14/2018 1:47 PM EDT Impressions 09/14/2018 1:51 PM EDT No evidence for instability. Normal alignment on all 3 views. No hardware complication. Multilevel fusion. POS - [email or web address] Narrative 09/14/2018 1:51 PM EDT XR LUMBOSACRAL SPINE 2-3 VIEWS HISTORY: Low back pain, limited range of motion. TECHNIQUE: Lumbar spine lateral views, neutral, flexion, extension. COMPARISON: 08/21/2018. FINDINGS: Posterior fusion hardware L2-L3, without change in appearance. Hardware is intact and stable in position. Disc spacer also at L2-L3. Disc cage devices again seen L3-L4, L4-L5 and L5-S1 with bone fusion across these disc spaces. There is normal lumbar spine alignment. No evidence for hardware complication. No acute fracture. Procedure Note Kourtney Cortez MD - 09/14/2018 XR LUMBOSACRAL SPINE 2-3 VIEWS HISTORY: Low back pain, limited range of motion. TECHNIQUE: Lumbar spine lateral views, neutral, flexion, extension. COMPARISON: 08/21/2018. FINDINGS: Posterior fusion hardware L2-L3, without change in appearance. Hardware isintact and stable in position. Disc spacer also at L2-L3. Disc cage devices again seen L3-L4, L4-L5 and L5-S1 with bone fusionacross these disc spaces. There is normal lumbar spine alignment. No evidence for hardwarecomplication. No acute fracture. IMPRESSION: No evidence for instability. Normal alignment on all 3 views. No hardware complication. Multilevel fusion. POS - [email or web address] us Lucia DOWNS IMG XR SPINE Final Resul t documented in this encounter Visit Diagnoses Diagnosis Arthrodesis status Spinal stenosis of lumbar region with neurogenic claudication Arthrodesis status Spinal stenosis of lumbar region with neurogenic claudication Arthrodesis status Spinal stenosis of lumbar region with neurogenic claudication documented in this encounter Care Teams Dump Grader Relationship Specialty Start Date End Date Abram Valdez DO [email or web address] PCP - General Internal Medicine 05/29/17 documented as of this encounter Additional Source Comments The information contained in this document represents components of the legal health record. It is not the complete legal health record.[facility]
--- OUTSIDE RECORDS SUMMARY | 2025-01-06 04:40 | XMS_ITS | Encounter Summary ---
Author Organization [facility] Address [address] [place] [phone] Phone Care Team Providers Care Customer Facilities Supervisor Name Role Phone Abram Valdez DO Primary Care Provider [phone] Encounter Details Date Type Department Care Team (Late st Contact Info) Description 11/28/2018 Ancillary Orders [facility], X-Ray - [address] [address] Lucia Rivero [address] [place] [address] [email or web address] Social History Tobacco Use Types Packs/Day Years Used Date Smoking Tobacco: Former Cigarettes Smokeless Tobacco: Never Comments:one month ago Alcohol Use Standard Drinks/Week Comments Yes 0 (1 standard drink = 0.6 oz pur e alcohol) rarely Sex and Gender Information Value Date Recorded Sex Assigned at Not on file Legal Sex Male 9:53 PM EDT Gender Identity Not on file Sexual Orientation Not on file documented as of this encounter Plan of Treatment Not on file documented as of this encounter Visit Diagnoses Not on filedocumented in this encounter Care Teams Customer Facilities Supervisor Relationship Specialty Start Date End Date Abram Valdez DO PCP - General Internal Medicine 05/29/17 documented as of this encounter Additional Source Comments The information contained in this document represents components of the legal health record. It is not the complete legal health record.[facility]
--- OUTSIDE RECORDS SUMMARY | 2025-01-06 04:40 | XMS_ITS | Data Portability ---
Author Organization [facility], Telehealth Patient Home Address [address] [place] [address] Assessment Encounter Date Assessment Date Assessment LastModified by Organization Details LastModified Time 11/17/2023 11/17/2023 [id number] [place] [id number] (ENVIRONMENTAL ADVISOR) [facility] MODERATE MUST MEET 2 OUT OF 3 [...] COVERED Not available 11/17/2023 16:43:36 03/22/2024 03/22/2024 [id number] [place] [id number] (ENVIRONMENTAL ADVISOR) MDM MODERATE MUST MEET 2 OUT OF [...] THAT IS COVERED Not available 03/22/2024 10:13:05 10/01/2024 10/01/2024 . Not available 09/17 14:45:58 01/05/2025 01/05/2025 [id number] [place] [id number] (ENVIRONMENTAL ADVISOR) MDM MODERATE MUST MEET 2 OUT OF [...] EACH ELEMENT THAT IS COVERED Not available 01/05/2025 16:02:29 Plan of Treatment Reminders Order Date Submit Date Provider Last Modified By Organization Details Last Modified Time Details Appointments FOLLOW UP 15 2025 04:15P Ethel ROSALES Not available Not available Not available Lab hemoglobi n A1c, QN, blood 2024 025 [facility], [address] [place] [address], [id number], 01/05/2025 16:06:19 hemoglobi n A1c, QN, blood 2024 025 [facility], [address] [place] [address], [id number], 10/04/2024 11:35:36 CMP, serum or plasma 2024 025 [facility], [address] [place] [address], [id number], 10/04/2024 11:35:36 hemoglobi n A1c, QN, blood 2024 025 [facility], [address] [place] [address], [id number], 10/04/2024 11:35:36 HbA1c (hemoglob in A1c), blood 2024 025 [facility], [address] [place] [address], [id number], 03/25/2024 12:48:20 CMP, serum or plasma 2024 025 [facility], [address] [place] [address], [id number], 03/25/2024 12:48:20 TSH, serum or plasma 2023 024 [facility], [address] [place] [address], [id number], 08/01/2023 15:34:40 HbA1c (hemoglob in A1c), blood 2023 024 [facility], [address] [place] [address], [id number], 11/18/2023 11:31:51 CMP, serum or plasma 2023 024 [facility], [address] [place] [address], [id number], 08/01/2023 15:34:40 lipid panel, blood 2023 024 [facility], [address] [place] [address], [id number], 08/01/2023 15:34:40 microalbu min, urine 2023 024 [facility], [address] [place] [address], [id number], 08/01/2023 15:34:40 Referral None recorded. Procedures None recorded. Surgeries None recorded. Imaging exercise stress test - progressi ve exertiona l dyspnea 2024 025 [facility], [address] [place], [address], 03/29/2024 09:23:10 Medication Orders terbinafi ne HCl 250 mg tablet 2024 025 [facility] #[id number], [address] [place], [address], 01/05/2025 16:19:33 nitroglyc dany 0.4 mg sublingua l tablet 2024 025 [id number], [address] [place], [address], 01/05/2025 15:55:04 glimepiri de 4 mg tablet 2023 024 [id number], [address] [place], [address], 08/01/2023 15:32:13 Patient TargetsNo targets recorded. Patient Instructions Encounter Date Encounter Id Patient Instructions Last Modified By Organization Details Last Modified Time 08/01/2023 [id number] [email or web address] Not available 08/01/2023 15:32:11 type 2 diabetes: care instructions [email or web address] Not available 08/01/2023 15:32:11 03/22/2024 [id number] high cholesterol : care [facility] Not available 03/22/2024 10:15:50 Reason for Referral None Reported. Results Created Date Observation Date Name Description Value Unit Range Abnormal Flag Note LastModifiedBy Organization Detail LastModifiedTime 03/29/1903/29/2024 exerc ise stres s test No observ ation record ed. [facility] (Medical Records) [address] [place], [address], 03/29/2024 12:38:28 10/06/19 25 06/30/2024 trans -thor acic echoc ardio gram (TTE) (PROC ) No observ ation record ed. [email or web address] [facility] [address] [place], [address], 10/05/2024 13:31:06 10/13/19 25 07/05/2024 US, carot id arter y No observ ation record ed. [email or web address] [address], [address], 10/13/2024 15:00:24 10/13/19 25 07/05/2024 US, carot id arter y No observ ation record ed. [email or web address] [address], [address], 10/13/2024 15:00:24 10/26/19 25 07/05/2024 US, duple x, carot id arter y No observ ation record ed. [email or web address] [address], [address], 10/25/2024 14:20:14 Result Notes None recorded. Problems Name Problem SNOMED Code Status Onset Date Resolution Date Notes Provider Name and Address Organization Details Recorded Time Hypertrig lyceridem ia 183044483 Active 2017 Not Available [facility] 0 12:01:56 Type 2 diabetes mellitus 46722080 Active 2017 Not Available [facility] 0 12:01:56 Disorder of vitamin B12 932808843 Active 2017 Not Available [facility] 0 12:01:56 Tremor 52056421 Active 2017 Not Available [facility] 0 12:01:56 Restless legs syndrome 77706486 Active 2017 Not Available [facility] 0 12:01:56 Hypertens daysi disorder 29960616 Active 2017 Not Available [facility] 0 12:01:56 Subclinic al hypothyro idism 01365608 Active 2017 Not Available [facility] 0 12:01:56 Degenerat ion of lumbar intervert ebral disc 46797661 Active 2017 Not Available [facility] 0 12:01:56 Spinal stenosis of lumbar region 25755651 Active 2017 Not Available [facility] 0 12:01:56 Diabetic periphera l neuropath y 101410485 Active 2021 Abram Rosales, DO [address] [place] [address], [address], [facility] 2 16:02:07 Erectile dysfuncti on 375523377 Active 2021 Abram Rosales DO [address] [place] [address], [address], [facility] 2 16:21:24 Microalbu minuric diabetic nephropat hy 386049526 Active 2021 Abram Rosales DO [address] [place] [address], [address], [facility] 2 16:23:31 Contractu re of joint of finger 883635144 Active 2022 Abram Rosales DO [address] [place] [address], [address], [facility] 3 16:28:46 Hyperlipi demia 69690927 Active 2022 Abram Rosales DO [address] [place] [address], [address], [facility] 3 16:31:38 Depressiv e disorder 65031125 Active 2022 Abram Rosales DO [address] [place] [address], [address], [facility] 3 16:32:43 COVID-19 566155417 Active 2023 HIMANSHU HEALY [address] [place] [address], [address], [facility] 4 09:57:50 Chest pain on exertion 88941604 Active 2024 Abram Rosales DO [address] [place] [address], [address], [facility] 5 10:13:16 New onset angina 888504849 Active 2024 Abram Rosales, DO [address] [place], [address], [facility] 5 12:38:52 Left carotid artery stenosis 538143271281 103 Active 2024 Abram Rosales, DO [address] [place], [address], [facility] 5 14:50:56 Onychomyc osis of nail of digit 917202154 Active 2024 Abram Rosales, DO [address] [place], [address], [facility] 5 16:03:28 Problem Notes None recorded. Medical Equipment None [...] Available Not Available Not Available carvedilo l 6.25 mg tablet TAKE 1 TABLET BY MOUTH TWICE A DAY 10/01 completed Not Available Not Available Not Available nabumeton e 750 mg tablet TAKE 1 TABLET BY MOUTH TWICE A DAY 07/18 completed Not Available Not Available Not Available sildenafi l 50 mg tablet TAKE 1 TABLET BY MOUTH EVERY DAY FOR 10 DAYS 04/21 completed Not Available Not Available Not Available amiodaron e 200 mg tablet Take 1 tablet twice a day by oral route. 01/05 completed Not Available Not Available Not Available isosorbid e mononitra te ER 30 mg tablet,ex tended release 24 hr TAKE 1 TABLET BY MOUTH DAILY IN AM, X 90 DAYS 10/01 completed Not Available Not Available Not Available [...] 1 TABLET BY MOUTH TWICE A DAY 10/01 completed Not Available Not Available Not Available oxycodone -acetamin ophen 5 mg-325 mg tablet TAKE 1 TABLET EVERY 4 TO 6 HOURS NEEDED 11/16 completed Not Available Not Available Not Available terbinafi ne HCl 250 mg tablet Take 1 tablet every day by oral route for 30 days. 2024 active Not Available Not Available Not Avai lable gemfibroz il 600 mg tablet TAKE 1 TABLET BY MOUTH TWICE A DAY 10/01 completed Not Available Not Available Not Available cyanocoba armando (vit B-12) 1,000 mcg/mL injection solution INJECT 1 ML INTO THE MUSCLE EVERY 2 WEEKS 01/05 completed Not Available Not Available Not Available metformin 1,000 mg tablet TAKE 1 TABLET BY MOUTH TWICE A DAY active Not Available Not Available No t Available glimepiri de 4 mg tablet TAKE 1 TABLET BY MOUTH EVERY DAY active Not Available Not Available No t Available nitroglyc dany 0.4 mg sublingua l tablet PLACE 1 TABLET UNDER TONGUE NEEDED FOR 30 DAYS. 01/05 completed Not Available Not Available Not Available gabapenti n 300 mg capsule Take one tablet 3 x day and 2 tablets at nightime . 08/26 completed Not Available Not Available Not Available aspirin 81 mg chewable tablet Chew 1 tablet every day by oral route. active Not Available Not Available No t Available lisinopri l 5 mg tablet TAKE 1 TABLET BY MOUTH EVERY DAY active Not Available Not Available No t Available furosemid e 20 mg tablet Take 1 tablet every day by oral route as directed . 01/05 completed Not Available Not Available Not Available metoprolo l succinate ER 25 mg tablet,ex tended release 24 hr TAKE 1 TABLET BY MOUTH EVERY DAY [...] completed Not Available Not Available Not Available ezetimibe 10 mg tablet TAKE 1 TABLET BY MOUTH EVERY DAY active Not Available Not Available No t Available rosuvasta tin 20 mg tablet TAKE 1 TABLET BY MOUTH EVERY DAY 10/01 completed Not Available Not Available Not Available rosuvasta tin 40 mg tablet Take 1 tablet every day by oral route as directed . 01/05 completed Not Available Not Available Not Available [...] Available Not Available Jardiance 25 mg tablet 1 po qd 2024 active Not Available Not Available Not Avai lable Repatha SureClick 140 mg/mL subcutane ous pen injector INJECT 140MG SUBCUTAN EOUSLY EVERY 14 DAYS active Not Available Not Available No t Available Repatha Syringe active Not Available Not Available Not Available Paxlovid 300 mg (150 mg x 2)-100 mg tablets in a dose pack TAKE 3 TABLETS BY MOUTH TWICE A DAY FOR 5 DAYS 11/16 completed Not Available Not Available Not Available Vitals Date Recorded Body height Body mass index (BMI) Body weight Heart rate Oxygen saturation Oxygen saturation in Arterial blood by Pulse oximetry Systolic And Diastolic Provider Name and Address Organization Details Last Updated DateTime 5 179.71 cm 31 kg/m2 873316. 55 g 70 /min 98 % 98 % 116/76 mm[Hg] Dick Cool [facility] 5 09:34:01 Date Recorded Body height Body mass index (BMI) Body weight Heart rate Oxygen saturation Oxygen saturation in Arterial blood by Pulse oximetry Systolic And Diastolic Provider Name and Address Organization Details Last Updated DateTime 4 179.71 cm 31 kg/m2 745621. 91 g 71 /min 97 % 97 % 100/68 mm[Hg] Barbara Pereira [facility] 4 15:05:01 Date Recorded Body height Body mass index (BMI) Body weight Oxygen saturation Oxygen saturation in Arterial blood by Pulse oximetry Heart rate Systolic And Diastolic Provider Name and Address Organization Details Last Updated DateTime 5 179.71 cm 29.8 kg/m2 11763.5 8 g 97 % 97 % 66 /min 124/70 mm[Hg] MARILOU MOHANCHANCE [facility] 5 14:32:58 Date Recorded Body height Body mass index (BMI) Body weight Heart rate Oxygen saturation Oxygen saturation in Arterial blood by Pulse oximetry Systolic And Diastolic Provider Name and Address Organization Details Last Updated DateTime 4 179.71 cm 31.6 kg/m2 004053. 28 g 73 /min 98 % 98 % 132/68 mm[Hg] Jaylin Sweeney [facility] 4 16:27:24 Date Recorded Body height Body mass index (BMI) Body weight Heart rate Oxygen saturation Oxygen saturation in Arterial blood by Pulse oximetry Systolic And Diastolic Provider Name and Address Organization Details Last Updated DateTime 5 179.71 cm 28.8 kg/m2 85769.4 4 g 64 /min 98 % 98 % 98/62 mm[Hg] Jaylin Sweeney [facility] 5 15:48:59 Social History Question Answer Notes LastModified by Organizat ion Details LastModified Time Tobacco Smoking Status Former Smoker Not Available [facility] 12/21/2019 03:36:24 What Was The Date Of Your Most Recent Tobacco Screening? 01/05/2025 [email or web address] Information not available 01/05/2025 Sex: Unknown Functional Status Question Answer Note LastModified by Organization D etails LastModified Time Do you or have you ever used any other forms of tobacco or nicotine? No Information not available 01/01/2022 Mental Status None recorded. Family History Nothing Reported. Medical History No medical history recorded. Immunizations Vaccine Type Date Status Note Provider Nam e and Address Organization Details Recorded Time COVID-19, mRNA, LNP-S, PF, 100 mcg/0.5mL dose or 50 mcg/0.25mL dose 05/08/19 21 completed Abram Rosales DO [address] [place] [address], [address], [facility] 08/28/2020 16:16:45 influenza, unspecified formulation 04/25/19 completed Barbara smith [facility] 04/26/2024 09:11:10 SARS-COV-2 (COVID-19) vaccine, UNSPECIFIED 04/25/19 completed Barbara smith [facility] 04/26/2024 09:11:19 Influenza, split virus, quadrivalent, preservative 01/30/20 completed Vanesa smith [facility] 01/31/2020 13:33:40 Tdap 01/30/20 ricardo smith [facility] 01/31/2020 13:34:29 zoster recombinant 01/30/20 completed Vanesa smith [facility] 01/31/2020 13:35:09 pneumococcal polysaccharide PPV23 01/30/20 [facility] 13:37:05 COVID-19, mRNA, LNP-S, PF, 100 mcg/0.5mL dose or 50 mcg/0.25mL dose 04/16/19 21 completed Abram Rosales DO [address] [place] [address], [address], [facility] 04/21/2020 16:15:37 Past Encounters Encounter ID Performer Location Encounter Start Date Encounter Closed Date Diagnosis/Indication Diagnosis SNOMED-CT Code Diagnosis ICD10 Code Diagnosis IMO Codes Diagnosis Note [id number] Abram Rosales DO [facility] [address],[place] [address] 07/11/2017 16:34:12 07/11/2017 17:02:54 Type 2 diabetes mellitus 60083802 E11.9 a1c 7.5 told must lower glucose before surgery Hypertensive disorder 38 352409 I10 excellent result Spinal rupinder nosis of lumbar region 23119252 M48.062 going for surg in august [facility] hypothyroidism 88275265 E03.9 tsh still elevated >5 will consider tx Disorder o f vitamin B12 370951877 E53.8 needs tp restart b12 and gp q 2 weeks [id number] Abram Rosales [facility] [address] [facility],[place] [address] 08/26/2017 13:51:15 08/26/2017 15:12:59 Pre-surgery evaluation 630723158 Z01.818 patient is currently stable does have [...] understand s and will comply. [id number] Abram Rosales [facility] [address] [facility],[place] [address] 10/24/2017 15:26:51 10/24/2017 16:02:57 Hypertensive disorder 44280675 I10 excellent result Type 2 vern betes mellitus 92403764 E11.9 a1c 6.5 told must continue this effort doing really well!! lost 20# cont [facility] hypothyroidism 54772943 E03.9 tsh still elevated >[place] [id number] Abram Rosales [facility] [address] [facility] [address] 02/03/2018 16:12:22 02/06/2018 10:03:00 Type 2 diabetes mellitus 94615346 E11.9 a1c 5.9 told must continue this effort doing really well!! lost 20# cont still doing fantasstic feels good Disorder o f vitamin B12 645419474 E53.8 needs tp restart b12 and gp q 2 weeks [facility] hypothyroidism 36597740 E03.9 tsh still elevated >5 will consider tx Hypertensive disorder 38 309073 I10 excellent result Primary er ectile dysfunction 612335345 N52.9 after discussion lets try this warnings given and discussed [id number] Abram Rosales [facility] [address] [facility] [address],[place] [address] 05/12/2018 16:07:34 05/12/2018 16:31:19 Type 2 diabetes mellitus 21240545 E11.9 a1c 6.1 told must continue this effort doing really well!! lost 20# cont admits to eating a sl higher portion lately Hypertensive disorder 38 198346 I10 excellent result Disorder o f vitamin B12 104185897 E53.8 needs tp restart b12 and gp q 2 weeks as his B12 down to 244 [facility] hypothyroidism 28361930 E03.9 tsh still looking good at less than 4 [id number] Abram Rosales [facility] [address] [facility] [address] [place] [address] 09/14/2018 16:24:21 09/15/2018 08:07:52 Degeneration of lumbar intervertebral disc 48369495 M51.36 refill tramadol following [facility] Hypertensive disorder 38 761106 I10 excellent result no change in meds Type 2 vern betes mellitus 02640862 E11.9 a1c is pending and has kept weight off and is eating good walking daily last a11c is 6.1 await lab [id number] Abram Rosales [facility] [address] [facility] [address] [address] 12/16/2018 16:06:54 12/16/2018 16:44:36 Spinal stenosis of lumbar region 10327853 M48.062 surg in august was successful and he is doing well Degenerati on of lumbar intervertebral disc 82819206 M51.36 refill tramadol following [facility] surgery was successful Type 2 vern betes mellitus 39041330 E11.9 a1c is pending and has kept weight off and is eating good walking daily last a11c is 6.1 await lab Hypertensive disorder 38 387762 I10 excellent result no change in meds [id number] Abram Rosales [facility] [address] [facility] [address],[place] [address] 03/22/2019 16:24:32 03/22/2019 16:51:19 Hypertensive disorder 60865479 I10 excellent result no change in meds will need to chk cmp Type 2 vern betes mellitus 48291227 E11.9 a1c is pending and has kept weight off and is eating good walking daily last a1c is 6.1 await lab a1c etc [facility] hypothyroidism 49584505 E03.9 tsh still looking good at less than 4 last lab so we will need to rechk tsh [id number] Abram Rosales [facility] [address] [facility], [place] [address] 07/19/2019 16:21:16 07/20/2019 08:05:19 Type 2 diabetes mellitus 69519709 E11.9 a1c is pending and has kept weight off and is eating good walking daily last a1c is 7.2 and 6.1 cmp is stable will follow a1c next visit [facility] hypothyroidism 47407293 E03.9 tsh still looking good at less than tsh a nd t4 are excellent Spinal rupinder nosis of lumbar region 51534061 M48.062 surg in last august was successful and he is doing well Disorder o f vitamin B12 766744433 E53.8 restarted b12 and was given syringes [id number] Abram Rosales [facility] [address] [facility], [place] [address] 11/15/2019 15:36:25 11/15/2019 16:38:38 Spinal stenosis of lumbar region 30882579 M48.062 surg in last august was successful and he is doing well Tremor 12742210 R25.1 seems stable overall Hypertriglyceridemia 302 812420 E78.1 Type 2 vern betes mellitus 45358277 E11.9 a1c is pending and has kept weight off and is eating good walking daily last a1c is 7.2 and 6.1 cmp is stable will follow a1c next visit Hypertensive disorder 38 230335 I10 excellent result no change in meds will need to chk cmp [id number] Abram Rosales [facility] [address] [facility] [address],[place] [address] 04/21/2020 16:09:04 04/21/2020 16:34:36 Hypertriglyceridemia 602360334 E78.1 will need next visit Hypertensive disorder 38 923670 I10 excellent result no change in meds will need to chk cmp Type 2 vern betes mellitus 47345118 E11.9 a1c is pending and has kept weight off and is eating good walking daily last a1c is 7.2 and 6.1 cmp is stable will follow a1c next visit [facility] hypothyroidism 43784086 E03.9 tsh will need to be checked the next visit Degenerati on of lumbar intervertebral disc 87162544 M51.36 refill tramadol following [facility] but hes doing ok overall surgery was successful Benign pro static hyperplasia 766960948 N40.0 Primary er ectile dysfunction 566832505 N52.9 discussion we will try to wean him off the carvedilol first to see if this is a culprit so he will take half for couple dyas this wknd and then stop come friday and see if things f=dont improve by or fri and call next friday [id number] Abram Rosales [facility] [address] [facility], [place] [address] 08/28/2020 16:07:39 08/28/2020 16:51:40 Hypertensive disorder 76627978 I10 excellent result no change in meds will need to chk cmp Type 2 vern betes mellitus 57173611 E11.9 a1c is pending and has kept weight off and is eating good walking daily last a1c is 7.2 and 6.1 cmp is stable will follow a1c next visit [facility]clin[facility] hypothyroidism 37572810 E03.9 tsh will need to be checked the next visit Tremor 79662814 R25.1 seems stable overall but when he exerts himself for a period of time his hands start shaking which then abates with rest and nutririon Diabetic p eripheral neuropathy 195034958 E11.40 noted toes are numb but stable has not worsened [id number] Abram Rosales DO [facility] [address] [facility], [place] [address] 12/05/2020 16:14:08 12/06/2020 08:20:47 Type 2 diabetes mellitus 10066363 E11.9 has kept weight off and is eating good walking daily last a1c is 7.4 from 7.2 and 6.1 cmp is stable will follow a1c next visit [facility]clin[facility] hypothyroidism 95268943 E03.9 tsh will need to be checked the next visit Degenerati on of lumbar intervertebral disc 45306489 M51.36 refill tramadol following [facility] but hes doing ok overall surgery was successful Hypertensive disorder 38 765497 I10 excellent result no change in meds will need to chk cmp Renewal of prescription 204933545 Z76.0 [id number] Abram Rosales [facility] [address] [facility], [place] [address] 03/13/2021 08:20:23 03/13/2021 16:32:58 Hypertensive disorder 13247895 I10 excellent result no change in meds will need to chk cmp Spinal rupinder nosis of lumbar region 40949667 M48.062 surg in last august was successful and he is doing well Type 2 vern betes mellitus 28553359 E11.9 his current a1c is 7.2 has kept weight off and is eating good walking daily last a1c is 7.4 from 7.2 and 6.1 cmp is [id number] ill follow a1c next visit rechk in june or may [facility] hypothyroidism 05731240 E03.9 tsh will need to be checked the next visit Diabetic p eripheral neuropathy 589533744 E11.40 noted toes are numb but stable has not worsened [id number] Abram Rosales DO [facility] [address] [facility],[place] [address] 06/25/2021 14:27:09 06/25/2021 16:47:03 Type 2 diabetes mellitus 18160901 E11.9 his current a1c is 7.2 and is stable has kept weight off and is eating good walking daily last a1c is 7.4 from 7.2 and 6.1 cmp is [id number] ill follow a1c next visit rechk in june or may will need diabetic foot exam next labdid have eye exam no issue Hypertensive disorder 38 733966 I10 excellent result no change in meds will need to chk cmp Hypertriglyceridemia 302 578796 E78.1 will need next visit Erectile dysfunction [id number] F52.21 [id number] Abram Rosales [facility] Internal Medicine [address] [facility],[place] [address] 09/21/2021 15:44:00 09/21/2021 16:43:11 Hypertensive disorder [id number] I10 excellent result no change in meds will need to chk cmp Hypertriglyceridemia 302 239511 E78.1 will need next visit Type 2 vern betes mellitus 65323570 E11.9 his current a1c is 7.7 and is stable but the prior was 7.5 has kept weight off and is eating good walking daily last a1c is 7.4 from 7.2 and 6.1 cmp is stable NOTE MICROALBUM IN IS ELEVATED COMPARED TO LAST YEAR WE WILL HAVE TO REFER TO DR RICK AND RESTART THE LISINOPRIL [id number] follow a1c next visit rechk will need diabetic foot exam next labdid have eye exam no issue Subclinica l hypothyroidism [id number] E03.9 tsh will need to be checked the next visit Advance care planning [phone] [id number] Z71.89 Microalbum inuric diabetic nephropathy [id number] E11.21 [id number] Abram Rosales DO [facility] [address] [facility],[place] [address] 01/01/2022 15:39:00 01/01/2022 16:44:23 Type 2 diabetes mellitus 46407806 E11.9 his current a1c is now at 7.4 was 7.7 and is stable but the prior was 7.5 has kept weight off and is eating good walking daily last a1c is 7.4 from 7.2 and 6.1 cmp is stable NOTE MICROALBUM IN IS ELEVATED COMPARED TO LAST YEAR WE WILL HAVE TO REFER TO DR RICK AND RESTART THE LISINOPRIL [id number] follow a1c next visit rechk will need diabetic foot exam next labdid have eye exam no issue Hypertensive disorder 38 569905 I10 excellent result no change in meds will need to chk cmp Subclinica l hypothyroidism 16003194 E03.9 tsh will need to be checked the next visit Abdominal aortic aneurysm screening [id number] Z13.6 we will order when available Screening for malignant neoplasm of colon 532913420 Z12.11 will be scheduling at [place] when able Active or passive immunization [id number] Z23 patient advised he is due for flu shot, pneu 13, and 2nd shingles vaccine [id number] Abram Rosales [facility] Internal Medicine [address] [facility],[place] [address] 05/20/2022 15:49:40 05/20/2022 16:38:47 Type 2 diabetes mellitus 00143619 E11.9 his current a1c is now at [...] eye exam no issue Hypertensive disorder 38 932059 I10 excellent result no change in meds will need to chk cmp Microalbum inuric diabetic nephropathy 404446510 E11.21 has worsened due to poor diet and elevated a1c he will need to be referred to nephrology in [place] of joint of finger [id number] M24.549 Hyperlipidemia 48154987 E78.5 Depressive disorder 3548 9007 F32.A [id number] Abram Rosales [facility] Internal Medicine [address] [facility],[place] [address] 09/16/2022 15:26:02 09/16/2022 16:48:43 Depressive disorder 95663205 F32.A still doing ok with the duloxetine 30 mg Hyperlipidemia 49109970 E78.5 Hypertensive disorder 38 739156 I10 excellent result no change in meds will need to chk cmp Hypertriglyceridemia 302 503529 E78.1 will need next visit Type 2 vern betes mellitus 52401361 E11.9 didnt get jardiance due to misunderst [...] will add glimepirid e in its plave [id number] Abram Rosales, [facility] Internal Medicine [address] [facility] [place] [address] 12/18/2022 14:58:22 12/18/2022 16:18:49 Hyperlipidemia 63558907 E78.5 will rechk Hypertensive disorder 38 505837 I10 excellent result no change in meds will need to chk cmp Type 2 vern betes mellitus 06915651 E11.9 a1c is 7.7increas e to 25mg [...] will add glimepirid e in its plave [id number] Abram Rosales, [facility] Internal Medicine [address] [facility],[place] [address] 03/10/2023 15:22:53 03/10/2023 16:00:47 Type 2 diabetes mellitus 23957582 E11.21 a1c is pending he hasnt done all lab yet Hyperlipidemia 92927930 E78.5 will rechk Hypertensive disorder 38 655837 I10 excellent result no change in meds will need to chk cmp [id number] Abram Rosales DO [facility] Internal Medicine [address] [facility],[place] [address] 08/01/2023 14:52:47 08/01/2023 15:51:52 Depression screening 896441099 Z13.31 SCREENING NEGATIVE Hypertensive disorder 38 371794 I10 excellent result no change in meds will need to chk cmp Type 2 vern betes mellitus 89611035 E11.21 a1c is 8.3 and is up from 7.9 Subclinica l hypothyroidism 63412713 E03.9 tsh will need to be checked the next visit [id number] Abram Rosales [facility] Internal Medicine [address] [facility],[place] [address] 11/17/2023 16:03:31 11/17/2023 16:44:57 Hypertensive disorder 79454680 I10 excellent result no change in meds will need to chk cmp Type 2 vern betes mellitus 10933603 E11.21 a1c is 8.3 and is up from 7.9 Diabetic p eripheral neuropathy 862221631 E11.40 noted toes are numb but stable has not worsened [id number] Abram Rosales [facility] Internal Medicine [address] [facility],[place] [address] 03/22/2024 09:21:53 03/22/2024 10:31:09 Hypertensive disorder 30459955 I10 excellent result no change in meds will need to chk cmp Type 2 vern betes mellitus 61095206 E11.21 a1c is pending was 8.3 and is up from 7.9 Hyperlipidemia 44322912 E78.5 will rechk Chest pain on exertion 75840524 R07.89 ongoing for many months now seems to have worsenedbe lieve this is real [id number] Abram Rosales [facility] Internal Medicine [address] [facility],[place] [address] 10/01/2024 14:26:09 10/01/2024 15:42:09 Depression screening 590258385 Z13.31 SCREENING NEGATIVE Hyperlipidemia 31675508 E78.5 will rechk Hypertensive disorder 38 673529 I10 excellent result no change in meds will need to chk cmp Type 2 vern betes mellitus 42823441 E11.21 a1c is 6.2 was 8.3 and is up from 7.9 History of coronary artery bypass grafting 028803866 Z95.1 [id number] doing well will be startng cardiac rehab soon also is now on amiodarone and metoprolol and furosemide but these will be taken off over time Left carot id artery stenosis [id number] 61262 I65.22 [id number] needs vascular as apparently has a 99% occlus on left [id number] Abram Rosales DO [facility] Internal Medicine [address],[place] [address] 01/05/2025 15:40:27 01/05/2025 16:06:17 Depression screening 600446629 Z13.31 SCREENING NEGATIVE Hypertensive disorder 38 777015 I10 excellent result no change in meds will need to chk cmp Hyperlipidemia 11862836 E78.5 will rechk Type 2 vern betes mellitus 01161726 E11.21 needs a1c a1c is 6.2 was 8.3 and is up from 7.9 Onychomyco sis of nail of digit 650327625 B35.5 [id number] Health Concerns Section Related Observation LastModified by Organization Detai ls LastModified Time None Recorded Concern Status LastModified by Organization Details LastModified Time None Recorded Advance Directives Directive None Recorded Payers Insurance Date Sequence Insurance Name Policy Number Policy Coombs Covered Member ID Coombs Member ID Guarantor Name 01/05/2025 1 [employer] [id number] Malcolm Tanner [id number] Malcolm Tanner Notes Date Note Type Note Provider Name and Address Organization Details Recorded Time 08/01/19 24 text/htm l Care Management - DiabetesReported by PatientHPIFor self care, patient reportsseeing eye doctor yearly for dilated eye exam,checking feet regularly,normal range of home blood sugars (in the low 100s), andno side effects from medications. For associated symptoms, patient reportssymptoms are usually well controlled,no fatigue,no dizziness,no excessive sweating,no headaches,no confusion,no increased thirst,no increased appetite,no increased urination,no blurred vision,no numbness of feet, andno calluses on feet. Care Management - HypertensionReported by PatientIFor self care, patient reportsnot under emotional stress. For severity, patient reportssymptoms are improvinganddoes not interfere with daily activities. For associated symptoms, patient reportsno dizziness,no lightheadedness,no chest pain,no shortness of breath,no palpitations,no edema,no calf muscle cramps,no blurred vision,no confusion,no headaches, andno fatigue.ROS as noted in the HPI here for irineo is doing sablut the same and his a1c is up to 8.3 and was7.9wife relates he is over eating but his weight is the same Abram Rosales DO [address] [place] [address], [address], [facility] Internal Medicine 08/01/2023 15:33:50 11/17/19 24 text/htm l Care Management - DiabetesReported by PatientDEL[facility]ENTERor self care, patient reportsseeing eye doctor yearly for dilated eye exam,checking feet regularly,normal range of home blood sugars (in the low 100s), andno side effects from medications. For associated symptoms, patient reportssymptoms are usually well controlled,no fatigue,no dizziness,no excessive sweating,no headaches,no confusion,no increased thirst,no increased appetite,no increased urination,no blurred vision,no numbness of feet, andno calluses on feet. Care Management - HypertensionReported by [facility] self care, patient reportsnot under emotional stress. For severity, patient reportssymptoms are improvinganddoes not interfere with daily activities. For associated symptoms, patient reportsno dizziness,no lightheadedness,no chest pain,no shortness of breath,no palpitations,no edema,no calf muscle cramps,no blurred vision,no confusion,no headaches, andno fatigue. here for hillary marc is feeling wellhad a1c todayrelates that he is feeling good Abram Rosales DO [address] [place], [address], [facility] Internal Medicine 11/17/2023 16:43:57 02/03/20 25 text/htm l ROS as noted in the HPI here for rechkrelates that he has been getting chest pain and tightness while exerting and sobhas been onging for 8+ monthshas been slowly getting worsedid not get lab not checking his sugars either Abram Rosales, [address] [place], [address], [facility] Internal Medicine 03/22/2024 10:23:33 10/02/19 25 text/htm l Care Management - DiabetesReported by PatientHPIFor self care, patient reportsseeing eye doctor yearly for dilated eye exam,checking feet regularly,normal range of home blood sugars (in the low 100s), andno side effects from medications. For associated symptoms, patient reportssymptoms are usually well controlled,no fatigue,no dizziness,no excessive sweating,no headaches,no confusion,no increased thirst,no increased appetite,no increased urination,no blurred vision,no numbness of feet, andno calluses on feet. Care Management - HypertensionReported by PatientHPIFor self care, patient reportsnot under emotional stress. For severity, patient reportssymptoms are improvinganddoes not interfere with daily activities. For associated symptoms, patient reportsno dizziness,no lightheadedness,no chest pain,no shortness of breath,no palpitations,no edema,no calf muscle cramps,no blurred vision,no confusion,no headaches, andno fatigue. Care Management - HyperlipidemiaReported by PatientIFor control, patient reportsusually well controlled,improving, andat goal. For complications, patient reportsno coronary artery disease,no heart attack,no cardiovascular disease,no pancreatitis, andno stroke.ROS as noted in the HPI here since hsopitalization for cabg x4vssl now day 14 outrelates he is feeling ggodno cp no sobhe is going to be started cardiac rehab Abram Rosales, [address] [place], [address], [facility] Internal Medicine 10/01/2024 14:57:07 01/06/20 25 text/htm l Care Management - DiabetesReported by PatientHPIFor self care, patient reportsseeing eye doctor yearly for dilated eye exam,checking feet regularly,normal range of home blood sugars (in the low 100s), andno side effects from medications. For associated symptoms, patient reportssymptoms are usually well controlled,no fatigue,no dizziness,no excessive sweating,no headaches,no confusion,no increased thirst,no increased appetite,no increased urination,no blurred vision,no numbness of feet, andno calluses on feet. Care Management - HypertensionReported by Patient Care Management - HyperlipidemiaReported by PatientHPIFor control, patient reportsusually well controlled,improving, andat goal. For complications, patient reportsno coronary artery disease,no heart attack,no cardiovascular disease,no pancreatitis, andno stroke.ldl 107ROS as noted in the HPI Abram Rosales, DO [address] [facility], [place], [address], [facility] 01/05/2025 16:06:16
--- OUTSIDE RECORDS SUMMARY | 2025-01-06 04:40 | XMS_ITS | Clinical Summary ---
Author Organization [facility] Address [address] [address] Phone Care Team Providers Care Physician General Practice Name Role Phone Abram Valdez Yusuf AUSTIN Primary Care Provider [phone] Allergies No known active allergies Medications metFORMIN (GLUCOPHAGE) 1000 MG tablet Take 1,000 mg by mouth 2 (two) times a day with meals. Active gemfibrozil (LOPID) 600 MG tablet Take 600 mg by mouth 2 (two) times a day before meals. Active carvedilol (COREG) 3.125 MG tablet Take 3.125 mg by mouth 2 (two) times a day with meals. Active SITagliptin (JANUVIA) 100 MG tablet Take 100 mg by mouth daily. Active docosahexanoic acid/epa (FISH OIL ORAL) Take 3,000 mg by mouth daily. Active traMADol (ULTRAM) 50 mg tablet Take 50 mg by mouth every 6 (six) hours as needed for pain (specific location in comments). Active cyanocobalamin, vitamin B-12, (VITAMIN B-12 INJ)Indications :every 2 wks Inject as directed. Indications: every 2 wks Active oxyCODONE 5 MG immediate release tablet Take 1-2 tablets (5-10 mg total) by mouth every 4 (four) hours as needed for moderate pain. Partial fill ok 42 tablet 11/04/2018 Active Active Problems Problem Noted Date Diagnosed Date Pseudarthrosis after fusion or arthrodesis 11/03 Spinal stenosis of lumbar region with radiculopa thy 09/09/2017 Immunizations Immunization Administration Dates Next Due Influenza Quadrivalent Preservative Free IM 10/18 Social History Tobacco Use Types Packs/Day Years Used Date Smoking Tobacco: Former Cigarettes Smokeless Tobacco: Never Comments:one month ago Alcohol Use Standard Drinks/Week Comments Yes 0 (1 standard drink = 0.6 oz pur e alcohol) rarely Education Answer Date Recorded Are you interested in more education? Not on odalis e 06/14/2022 Are you concerned about learning? Not on file 06/14/2022 No 06/14/2022 No 06/14/2022 Digital Access Answer Date Recorded No 07/13/2022 No 07/13/2022 Reliable internet access at home? Not on file 07/13/2022 Device with a working camera? Not on file Sex and Gender Information Value Date Recorded Sex Assigned at Not on file Legal Sex Male 9:53 PM EDT Gender Identity Not on file Sexual Orientation Not on file Last Filed Vital Signs Vital Sign Reading Time Taken Comments Blood Pressure 137/75 11/04/2018 11:03 AM EDT Pulse 74 11/04/2018 11:03 AM EDT Temperature 37.1 C (98.8 F) 11/04/2018 11:03 AM EDT Respiratory Rate 18 11/04/2018 11:03 AM EDT Oxygen Saturation 98% 11/04/2018 11:03 AM EDT Inhaled Oxygen Concentration 4% 09/09/2017 1 :15 PM EDT Weight 97.5 kg (215 lb) 11/03/2018 5:42 PM EDT Height 185.4 cm (6' 1 ) 11/03/2018 5:42 PM EDT Body Mass Index 28.37 11/03/2018 5:42 PM EDT Plan of Treatment Health Maintenance Due Date Last Done Comments Adult Td,Tdap Booster 1956 LIPID PANEL 1956 DEPRESSION SCREENING 1968 SMOKING Hx and SMOKELESS TOBACCO SCREENING 1969 HEPATITIS C SCREENING 1974 COLOGUARD 2001 COLONOSCOPY 2001 COLORECTAL CANCER SCREENING 2001 FIT TEST 2001 FOBT 2001 SIGMOIDOSCOPY 2001 VIRTUAL COLONOSCOPY 2001 PNEUMOCOCCAL VACCINES (50+ years) (1 of 1 - PCV) 2006 ZOSTER VACCINES (1 of 2) 2006 CREATININE LEVEL 10/29/2019 10/28/2018, 08/25/2017 ABDOMINAL AORTIC ANEURYSM (AAA) SCREENING 2021 INFLUENZA VACCINE (#1) 2024 11/04/2018 COVID-19 VACCINE (2 - 2024-2 6 season) 2024 04/16/2020 RSV VACCINE (1 - 1-dose 75+ series) 05/17/2031 HEPATITIS A VACCINES Aged Out No long er eligible based on patient's age to complete this topic HIB VACCINES Aged Out No longer eligi ble based on patient's age to complete this topic MENINGOCOCCAL VACCINES (ACWY) Aged Out No longer eligible based on patient's age to complete this topic MENINGOCOCCAL VACCINES (B) Aged Out N o longer eligible based on patient's age to complete this topic Medical Devices Implanted Type Area Sales Recruiter Device Identifier Shelf Expiration Date Model / Serial / Lot Graft [id number] 2.8cc Small Infuse Bone Graft - [id number] Implanted:Qty: 1 on 09/09/2017 by Hugo Chavez MD at [facility] BONETISSUE N/A: Spine Lumbar [employer] 12/17/2018 [id number] / / [id number] Spine Connector 3.5mm Osmany Oasys Titanium Occipito Cervical Thoracic - [id number] Implanted:Qty: 6 on 11/03/2018 by Hugo Chavez MD at [facility] NODATA Spine Cervical [employer] SP[employer] [id number] / / Graft Bone Villalba Orthoblend Demineralized Matrix Sm Defect Jar 5.0ml - [id number] Implanted:Qty: 1 on 09/09/2017 by Hugo Chavez MD at [facility] STANDARD Spine Lumbar [employer] 12/09/2018 [id number] / [id number] / Spacer Spine 6deg 85a98ts Cage [place] Peek Ib - [id number] Implanted:Qty: 1 on 09/09/2017 by Hugo Chavez MD at [facility] N/A: Spine Lumbar [employer] 06/25/2021 [id number] / / [id number] Description:L2-3 Davin Ti Sextant 5.5x45 - [id number] Implanted:Qty: 1 on 09/09/2017 by Hugo Chavez MD at [facility] Right: Spine Lumbar [employer] [id number] / / [id number] Plate [id number] Olif25 2-Hole Plate Small - [id number] Implanted:Qty: 1 on 09/09/2017 by Hugo Chavez MD at [facility] Spine Lumbar [employer] 02/07/2023 [id number] / / [id number] Screw [id number] Lumbar Bone 5.5 X 40mm - [id number] Implanted:Qty: 1 on 09/09/2017 by Hugo Chavez MD at [facility] Spine Lumbar [employer] 12/29/2023 [id number] / / [id number] Description:L2-3 Graft Bone Infusion Kit Xsmall - [id number] Implanted:Qty: 1 on 09/09/2017 by Hugo Chavez MD at [facility] N/A: Spine Lumbar [employer] 02/16/2018 [id number] / / [id number] Screw [id number] Lumbar Bone 5.5 X 40mm - [id number] Implanted:Qty: 1 on 09/09/2017 by Hugo Chavez MD at [facility] N/A: Spine Lumbar [employer] 02/08/2023 [id number] / / [id number] Description:L2-3 Set Screw Sextant - [id number] Implanted:Qty: 4 on 09/09/2017 by Hugo Chavez MD at [facility] [employer] [id number] / / Screw Spine Sextant 6.5x50mm - [id number] Implanted:Qty: 1 on 09/09/2017 by Hugo Chavez MD at [facility] [employer] [id number] / / Screw Bone 5.5x45mm Spine Multi Axial Cannulated Legacy - [id number] Implanted:Qty: 1 on 09/09/2017 by Hugo Chavez MD at [facility] Right: Spine Lumbar [employer] [id number] / / Screw Spine Sextant 6.5x45mm - [id number] Implanted:Qty: 1 on 09/09/2017 by Hugo Chavez MD at [facility] Right: Spine Lumbar [employer] [id number] / / Screw Bone 5.5x45mm Spine Multi Axial Cannulated Legacy - [id number] Implanted:Qty: 1 on 09/09/2017 by Hugo Chavez MD at [facility] Left: Spine Lumbar [employer] [id number] / / Davin Spinal Sextant 5.5x40mm - [id number] Implanted:Qty: 1 on 09/09/2017 by Hugo Chavez MD at [facility] Left: Spine Lumbar [employer] [id number] / / Screw Bone 3.5x10mm Spine Cervical Posterior Oasys Polyaxial Biased Angle - [id number] Implanted:Qty: 6 on 11/03/2018 by Hugo Chavez MD at [facility] N/A: Spine Cervical [employer] [id number] / / Spine Davin 40x3.5mm Spinal Oasys Titanium Occipito Cervico Thoracic Posterior - [id number] Implanted:Qty: 2 on 11/03/2018 by Hugo Chavez MD at [facility] N/A: Spine Cervical [employer] [id number] / / Procedures Procedure Name Priority Date/Time Associated Diagnosis Comments BASIC METABOLIC PANEL (BMP) Routine 10/28/2018 9:59 AM EDT Pre-op examination from Last 3 Months or Most Recently Relevant to Health Maintenance Results * (ABNORMAL) Basic metabolic panel (10/28/2018 9:59 AM EDT) SODIUM 138 133 - 146 mmol/L [facility] CHLORIDE 103 96 - 108 mmol/L [facility] POTASSIUM 4.2 3.3 - 5.1 mmol/L [facility] CO2 23 21 - 35 mmol/L [facility] BUN 14 6 - 19 mg/dL [facility] CREATININE 0.70 0.5 - 1.5 mg/dL [facility] GLUCOSE 156(H) 70 - 99 mg/dL [facility] CALCIUM 9.4 8.4 - 10.3 mg/dL [facility] EGFR 101 >59 mL/min/1.7 3m2 [facility] Comment:If patient is black, multiply result by 1.159. Estimated glomerular filtration rate calculated using the CKD-EPI equation. 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 It is not the complete legal health record.[facility]
--- OUTSIDE RECORDS SUMMARY | 2025-01-06 04:40 | XMS_ITS | Encounter Summary ---
Author Organization [facility] Address [address] [place] [address] Phone Care Team Providers Care Director Retail Brand Development Name Role Phone Abram Valdez DO Primary Care Provider [phone] Encounter Details Date Type Department Care Team (Late st Contact Info) Description 11/03/2018 Procedure Pass OR Admitting Dept - Virtual Department [address] [place] [id number] Social History Tobacco Use Types Packs/Day Years [...] on filedocumented in this encounter Care Teams Director Retail Brand Development Relationship Specialty Start Date End Date Abram Valdez DO PCP - General Internal Medicine 05/29/17 documented as of this encounter Additional Source Comments The information contained in this document represents components of the legal health record. It is not the complete legal health record.[facility]
--- OUTSIDE RECORDS SUMMARY | 2025-01-06 04:40 | XMS_ITS | Encounter Summary ---
Author Organization [facility] Address [address] [facility] [address] [place] [address] Phone Care Team Providers Care Mandate Retail Service Merchandiser Name Role Phone Abram Valdez Primary Care Provider Reason for Referral * MRI/CAT Scan - Closed Specialty Diagnoses / Procedures Referred By Albin lord Referred To Contact Radiology Diagnoses Arthrodesis status Procedures CT Cervical Spine Lucia Rivero PA Phone: tel: fax: [email or web address] Referral ID Status Reason Start Date Expiration Date Visits Re quested Visits Authorized [id number] Closed 09/09/2018 09/09/2019 1 1 Encounter Details Date Type Department Care Team (Late st Contact Info) Description 09/09/2018 Ancillary Orders Virtual Department [address] [place] [address] Lucia Rivero PA [address] [place] [phone] [email or web address] Arthrodesis status Social History Tobacco Use Types Packs/Day Years [...] documented as of this encounter Results * CT CERVICAL SPINE WITHOUT CONTRAST (09/14/2018 11:24 AM EDT) Anatomical Region Laterality Modality C-spine Computed Tomogra phy 09/14/2018 11:3 1 AM EDT Impressions 09/14/2018 11:37 AM EDT Ventral plate fusion from C5 through C7 with persistent small irregular disc spaces at C5-6 and C6-7. Diffuse foraminal encroachment due to spurring at multiple levels as detailed above. Mild relative spinal canal narrowing at C6-7 secondary to spurring. TOTAL CTDIvol: 12.10 mGy S/S: Arthrodesis status, multiple neck surgeries, pain radiating down left arm. . POS - [id number] Narrative 09/14/2018 11:37 AM EDT COMPARISON:Cervical spine x-rays 03/19/2014 TECHNIQUE: A nonenhanced study is performed. Multiplanar reformatted images obtained. Automated exposure control utilized. FINDINGS: The odontoid appears intact. There is a ventral plate fusion from C5 through C7 with persistent disc spaces noted at C5-6 and C6-7. Mild uncinate spurring at these levels is present. At C2-3 there is left-sided uncinate spurring with left foraminal encroachment. No spinal stenosis or definitive disc protrusion is confirmed. At C3-4 there is central uncinate spurring with a right-sided neural foraminal encroachment is spurring. No disc protrusion or spinal stenosis is seen. At C4-5 there is uncinate spurring with bilateral foraminal encroachment more so on the left than the right. No disc protrusion or spinal stenosis is seen. At C5-6 is prominent uncinate spurring with predominantly left-sided bony encroachment upon the neural foramen. No spinal stenosis is seen. At C6-7 there is prominent uncinate spurring with mild bilateral foraminal encroachment secondary to spurring. The neural canal is mildly narrowed to a diameter of 8 to 9 mm. At C7-T1 there is uncinate spurring without disc protrusion or spinal stenosis. The neuroforamen are mildly compromised by spurring bilaterally. Procedure Note John Gilbert MD - 09/14/2018 COMPARISON:Cervical spine x-rays 03/19/2014 TECHNIQUE: A nonenhanced study is performed. Multiplanar reformattedimages obtained. Automated exposure control utilized. FINDINGS: The odontoid appears intact. There is a ventral plate fusion from C5 through C7 with persistent discspaces noted at C5-6 and C6-7. Mild uncinate spurring at these levels ispresent. At C2-3 there is left-sided uncinate spurring with left foraminalencroachment. No spinal stenosis or definitive disc protrusion isconfirmed. At C3-4 there is central uncinate spurring with a right-sided neuralforaminal encroachment is spurring. No disc protrusion or spinal stenosisis seen. At C4-5 there is uncinate spurring with bilateral foraminal encroachmentmore so on the left than the right. No disc protrusion or spinal stenosisis seen. At C5-6 is prominent uncinate spurring with predominantly left-sided bonyencroachment upon the neural foramen. No spinal stenosis is seen. At C6-7 there is prominent uncinate spurring with mild bilateral foraminalencroachment secondary to spurring. The neural canal is mildly narrowed toa diameter of 8 to 9 mm. At C7-T1 there is uncinate spurring without disc protrusion or spinalstenosis. The neuroforamen are mildly compromised by spurringbilaterally. IMPRESSION: Ventral plate fusion from C5 through C7 with persistent small irregulardisc spaces at C5-6 and C6-7. Diffuse foraminal encroachment due tospurring at multiple levels as detailed above. Mild relative spinal canalnarrowing at C6-7 secondary to spurring. TOTAL CTDIvol: 12.10 mGy S/S: Arthrodesis status, multiple neck surgeries, pain radiating downleft arm. . POS - [id number] Lucia DOWNS IMG CT XSPECIALTY ORDERABLE S Final Result documented in this encounter Visit Diagnoses Diagnosis Arthrodesis status Arthrodesis status documented in this encounter Care Teams Mandate Retail Service Merchandiser Relationship Specialty Start Date End Date Abram Valdez DO [email or web address] PCP - General Internal Medicine 05/29/17 documented as of this encounter Additional Source Comments The information contained in this document represents components of the legal health record. It is not the complete legal health record.[facility]
--- OUTSIDE RECORDS SUMMARY | 2025-01-06 04:40 | XMS_ITS | Patient Health Record ---
Author Organization [facility] Address [address] [place] [address] Care Team Providers Care Boilermaker Industrial Boilers Name Role Phone Ciro Talbot Unavailable [phone] Reason For Referral No Information Plan Of Treatment No Information
--- OUTSIDE RECORDS SUMMARY | 2025-01-06 04:40 | XMS_ITS | Encounter Summary ---
Author Organization [facility] Address [address] [facility] [address] [place] [address] Phone Care Team Providers Care Geography Faculty Member Name Role Phone Abram Valdez DO Primary Care Provider [phone] Encounter Details Date Type Department Care Team (Late st Contact Info) Description 12/12/2018 Ancillary Orders [facility] - [address] [address] Lucia Rivero PA [address] [place] [phone] [email or web address] Arthrodesis status Social History Tobacco Use Types [...] Results * XR CERVICAL SPINE 2-3 VIEWS (12/12/2018 10:32 AM EDT) Anatomical Region Laterality Modality C-spine Radiographic Marialuisa ging 12/12/2018 2:30 PM EDT Impressions 12/12/2018 2:33 PM EDT Interval posterior hardware placement. No acute abnormality. Mild degenerative changes at C5-6 and C6/7. POS - CDH-RW Narrative 12/12/2018 2:33 PM EDT CLINICAL HISTORY: - PAIN [SIGN/SX] TECHNIQUE: AP, lateral and odontoid views of the cervical spine obtained. COMPARISON: 09/14/2018 FINDINGS: There is slight reversal of the cervical lordosis. This appears stable. The patient is status post anterior cervical fusion from C5 through C7. The superior anterior screw is fragmented. In the interval posterior fusion has been performed. The hardware appears otherwise unremarkable. There is disc space narrowing and endplate irregularity at C5-6 and C6/7. There is no fracture. The prevertebral soft tissues are unremarkable. Procedure Note Rod Greer MD - 12/12/2018 CLINICAL HISTORY: - PAIN [SIGN/SX] TECHNIQUE: AP, lateral and odontoid views of the cervical spineobtained. COMPARISON: 09/14/2018 FINDINGS: There is slight reversal of the cervical lordosis. This appears stable. The patient is status post anterior cervical fusion from C5 through C7.The superior anterior screw is fragmented. In the interval posteriorfusion has been performed. The hardware appears otherwise unremarkable. There is disc space narrowing and endplate irregularity at C5-6 andC6/7. There is no fracture. The prevertebral soft tissues are unremarkable. IMPRESSION: Interval posterior hardware placement. No acute abnormality. Mild degenerative changes at C5-6 and C6/7. POS - CDH-RW Lucia DOWNS IMG XR SPINE Final Resul t documented in this encounter Visit Diagnoses Diagnosis Arthrodesis status Arthrodesis status documented in this encounter Care Teams Geography Faculty Member Relationship Specialty Start Date End Date Abram Valdez DO [email or web address] PCP - General Internal Medicine 05/29/17 documented as of this encounter Additional Source Comments The information contained in this document represents components of the legal health record. It is not the complete legal health record.[facility]
--- OUTSIDE RECORDS SUMMARY | 2025-01-06 04:40 | XMS_ITS | Encounter Summary ---
Author Organization [facility] Address [address] [facility] [address] [place] [address] Phone Care Team Providers Care Financial Retirement Plan Specialist Name Role Phone Abram Valdez DO Primary Care Provider [phone] Encounter Details Date Type Department Care Team (Late st Contact Info) Description 08/21/2018 Ancillary Orders [facility] - [address] [address] Lucia Rivero PA [address] [place] [address] [email or web address] Arthrodesis status Social History Tobacco Use Types [...] as of this encounter Results * XR LUMBOSACRAL SPINE 4 OR MORE VIEWS (08/21/2018 9:56 AM EDT) Anatomical Region Laterality Modality L-spine Radiographic Marialuisa ging 08/21/2018 10:4 9 AM EDT Impressions 08/21/2018 10:54 AM EDT Status post fusion. No evidence of instability. POS - [id number] Narrative 08/21/2018 10:54 AM EDT HISTORY: Pain, status-post fusion. COMPARISON: Lumbar spine x-ray 12/03/2017 MRI lumbar spine 06/02/2017. VIEWS: AP and lateral views. Lateral views obtained in the neutral position, during flexion and extension. FINDINGS: Bilateral posterior fusion hardware remains in place at L2-L3. Hardware remains intact and is not appreciably changed in position. Markers from radiolucent disc age again demonstrated within the L2-L3 interspace. Suggestion of mild progression of bony fusion across the disc space since 12/03/2017. Disc cages remain within disc spaces at L3-L4, L4-L5 and L5-S1. Similar extensive bony fusion across these disc spaces. No new subluxations or evidence of instability. No suspicious lucencies or areas of sclerosis within the bones. No other significant changes. Procedure Note Julius Lozoya MD - 08/21/2018 HISTORY: Pain, status-post fusion. COMPARISON: Lumbar spine x-ray 12/03/2017 MRI lumbar spine 06/02/2017. VIEWS: AP and lateral views. Lateral views obtained in the neutralposition, during flexion and extension. FINDINGS: Bilateral posterior fusion hardware remains in place at L2-L3. Hardwareremains intact and is not appreciably changed in position. Markers fromradiolucent disc age again demonstrated within the L2-L3 interspace.Suggestion of mild progression of bony fusion across the disc space since12/03/2017. Disc cages remain within disc spaces at L3-L4, L4-L5 and L5-S1. Similarextensive bony fusion across these disc spaces. No new subluxations orevidence of instability. No suspicious lucencies or areas of sclerosiswithin the bones. No other significant changes. IMPRESSION: Status post fusion. No evidence of instability. POS - [id number] Lucia DOWNS IMG XR SPINE Final Resul t documented in this encounter Visit Diagnoses Diagnosis Arthrodesis status Arthrodesis status documented in this encounter Care Teams Financial Retirement Plan Specialist Relationship Specialty Start Date End Date Abram Valdez DO [email or web address] PCP - General Internal Medicine 05/29/17 documented as of this encounter Additional Source Comments The information contained in this document represents components of the legal health record. It is not the complete legal health record.[facility]
--- OUTSIDE RECORDS SUMMARY | 2025-01-06 04:41 | XMS_ITS | Encounter Summary ---
Author Organization [facility] Address [address] [facility] [address] [place] [address] Phone Care Team Providers Care Gem Expert Name Role Phone Abram Valdez DO Primary Care Provider [phone] Encounter Details Date Type Department Care Team (Latest Contact Info) Description 12/02/2017 Ancillary Orders Virtual Department [address] [place] [address] Lucia Rivero PA [address] [place] [phone] [email or web address] Arthrodesis status; Spinal stenosis, lumbar region with neurogenic claudication Social History [...] this encounter Results * XR LUMBOSACRAL SPINE 2-3 VIEWS (12/03/2017 7:38 AM EDT) Anatomical Region Laterality Modality L-spine Radiographic Marialuisa ging 12/03/2017 8:29 AM EDT Impressions 12/03/2017 8:52 AM EDT Stable postoperative and degenerative changes. POS - [id number] Narrative 12/03/2017 8:52 AM EDT HISTORY: As above. No trauma. COMPARISON: 10/02/2017. LUMBAR SPINE RADIOGRAPH FINDINGS: 2 views obtained. Stable extensive postoperative changes with posterior fusion hardware at L2-3, anterior disc fixation hardware at L2-3 and disc cages at L3-4 through L5-S1 with bony fusion of these disc space. Faint lucency surrounding the L3 pedicle screws again noted. No hardware fracture. Stable mild retrolisthesis of L2. No destructive bone lesions. Stable mild abdominal aortic calcified plaque. Procedure Note Kia Byrne MD - 12/03/2017 HISTORY: As above. No trauma. COMPARISON: 10/02/2017. LUMBAR SPINE RADIOGRAPH FINDINGS: 2 views obtained. Stable extensive postoperative changes with posteriorfusion hardware at L2-3, anterior disc fixation hardware at L2-3 and disccages at L3-4 through L5-S1 with bony fusion of these disc space. Faintlucency surrounding the L3 pedicle screws again noted. No hardwarefracture. Stable mild retrolisthesis of L2. No destructive bone lesions.Stable mild abdominal aortic calcified plaque. IMPRESSION: Stable postoperative and degenerative changes. POS - [id number] Lucia DOWNS IMG XR SPINE Final Resul t documented in this encounter Visit Diagnoses Diagnosis Arthrodesis status Spinal stenosis, lumbar region with neurogenic claudication Arthrodesis status Spinal stenosis, lumbar region with neurogenic claudication documented in this encounter Care Teams Gem Expert Relationship Specialty Start Date End Date Abram Valdez DO [email or web address] PCP - General Internal Medicine 05/29/17 documented as of this encounter Additional Source Comments The information contained in this document represents components of the legal health record. It is not the complete legal health record.[facility]
--- OUTSIDE RECORDS SUMMARY | 2025-01-06 04:41 | XMS_ITS | Encounter Summary ---
Author Organization [facility] Address [address] [facility] [address] [place] [address] Phone Care Team Providers Care Computer Assembler Name Role Phone Abram Valdez Primary Care Provider [phone] Encounter Details Date Type Department Care Team (Latest Contact Info) Description 05/29/2017 Ancillary Orders Virtual Department [address] [place] [address] Hugo Chavez MD [address] [place] [address] [email or web address] Lumbar radiculopathy Social History Tobacco Use Types Packs/Day Years Used Date Smoking Tobacco: Never Assessed Sex and Gender Information Value Date Recorded Sex Assigned at Not on file Legal Sex Male 9:53 PM EDT Gender Identity Not on file Sexual Orientation Not on file documented as of this encounter Plan of Treatment Not on file documented as of this encounter Results * MRI LUMBAR SPINE (NEURO) WITHOUT CONTRAST (06/02/2017 7:25 AM EDT) Anatomical Region Laterality Modality L-spine Magnetic Resonan ce 06/02/2017 11:1 4 AM EDT Impressions 06/02/2017 1:23 PM EDT Marked spinal canal stenosis at L2-3 secondary to disc and facet disease including a large disc protrusion. Severe neural foraminal narrowing on the left where facet change impinges on the exiting nerve root. Limited evaluation of the neural foramina from L3-4 through L5-S1 secondary to prominent signal artifact from the intervertebral disc prostheses. Severe neural foraminal narrowing suggested at L5-S1 on the left. POS - [id number] Edited by: Rose Marie Gibbs on 06/02/2017 11:34 AM Narrative 06/02/2017 1:23 PM EDT HISTORY: Low back pain right greater than left radiating down the right leg. History of cage implants at three levels in 1994 or 1995. COMPARISON: None. CORRELATION: None. TECHNIQUE: Exam performed on a 1.5 Beata high-field MRI scanner. Sagittal T1, T2 and STIR, axial T1 and T2 sequences were obtained. FINDINGS: Numbering of the vertebral bodies is based on the assumption that the inferiormost disc space is L5-S1. Conus medullaris terminates at L1 which is within normal limits. Undulating contour of the nerve root secondary to distal spinal stenosis. Extensive signal artifact from intervertebral disc prostheses at L3-4 through L5-S1. No acute compression deformities. Irregularity of the right ilium from bone graft harvest site. T11-12: This level is partially imaged. Bilateral facet arthropathy contributes to at least moderate bilateral neural foraminal narrowing. T12-L1: Minor disc bulging. No significant neural foraminal narrowing or spinal canal stenosis in the sagittal plane. L1-L2: Minor disc bulging and bilateral facet arthropathy in the sagittal plane. Neural foramina appear at least mildly narrowed. L2-L3: Generalized disc bulging with a large central/right paracentral disc protrusion. Severe facet arthropathy. These changes contribute to marked narrowing of the spinal canal. Severe left neural foraminal narrowing where facet change impinges on the exiting nerve root. Mild to moderate right neural foraminal narrowing. L3-L4: Intervertebral disc prosthesis. Bilateral facet arthropathy. Left neural foramen appears mild to moderately narrowed and the right is mildly narrowed. No significant spinal canal stenosis. L4-L5: Intervertebral disc prosthesis. Laminectomy changes on the right. Neural foramina are at least mildly narrowed. No significant spinal canal stenosis. L5-S1: Intervertebral disc prosthesis. Moderate bilateral facet arthropathy greater on the left. Left neural foramen appears severely narrowed and the right may be mild to moderately narrowed. No significant spinal canal stenosis. Left lateral recess may be narrowed. No significant abnormality in the paraspinal soft tissues. Procedure Note Thelma Ibanez MD - 04/16/2018 HISTORY: Low back pain right greater than left radiating down the rightleg. History of cage implants at three levels in 1994 or 1995. COMPARISON: None. CORRELATION: None. TECHNIQUE: Exam performed on a 1.5 Beata high-field MRI scanner. SagittalT1, T2 and STIR, axial T1 and T2 sequences were obtained. FINDINGS: Numbering of the vertebral bodies is based on the assumption that theinferiormost disc space is L5-S1. Conus medullaris terminates at L1 which is within normal limits.Undulating contour of the nerve root secondary to distal spinal stenosis.Extensive signal artifact from intervertebral disc prostheses at L3-4through L5-S1. No acute compression deformities. Irregularity of theright ilium from bone graft harvest site. T11-12: This level is partially imaged. Bilateral facet arthropathycontributes to at least moderate bilateral neural foraminal narrowing. T12-L1: Minor disc bulging. No significant neural foraminal narrowing orspinal canal stenosis in the sagittal plane. L1-L2: Minor disc bulging and bilateral facet arthropathy in the sagittalplane. Neural foramina appear at least mildly narrowed. L2-L3: Generalized disc bulging with a large central/right paracentraldisc protrusion. Severe facet arthropathy. These changes contribute tomarked narrowing of the spinal canal. Severe left neural foraminalnarrowing where facet change impinges on the exiting nerve root. Mild tomoderate right neural foraminal narrowing. L3-L4: Intervertebral disc prosthesis. Bilateral facet arthropathy. Leftneural foramen appears mild to moderately narrowed and the right is mildlynarrowed. No significant spinal canal stenosis. L4-L5: Intervertebral disc prosthesis. Laminectomy changes on the right.Neural foramina are at least mildly narrowed. No significant spinal canalstenosis. L5-S1: Intervertebral disc prosthesis. Moderate bilateral facetarthropathy greater on the left. Left neural foramen appears severelynarrowed and the right may be mild to moderately narrowed. No significantspinal canal stenosis. Left lateral recess may be narrowed. No significant abnormality in the paraspinal soft tissues. IMPRESSION: Marked spinal canal stenosis at L2-3 secondary to disc and facet diseaseincluding a large disc protrusion. Severe neural foraminal narrowing onthe left where facet change impinges on the exiting nerve root. Limited evaluation of the neural foramina from L3-4 through L5-[id number] to prominent signal artifact from the intervertebral discprostheses. Severe neural foraminal narrowing suggested at L5-S1 on theleft. POS - [id number] Edited by: Rose Marie Gibbs on 06/02/2017 11:34 AM Hugo Chavez MD IMG MR XSPECIALTY Final R esult documented in this encounter Visit Diagnoses Diagnosis Lumbar radiculopathy Thoracic or lumbosacral neuritis or radiculitis, unspecified Lumbar radiculopathy Thoracic or lumbosacral neuritis or radiculitis, unspecified documented in this encounter Care Teams Computer Assembler Relationship Specialty Start Date End Date Abram Valdez DO [email or web address] PCP - General Internal Medicine 05/29/17 documented as of this encounter Additional Source Comments The information contained in this document represents components of the legal health record. It is not the complete legal health record.[facility]
--- OUTSIDE RECORDS SUMMARY | 2025-01-06 04:41 | XMS_ITS | Clinical Summary ---
Author Organization [facility] Address [address] [address] [place] [address] Care Team Providers Care Simplex Operator Name Role Phone Abram Valdez DO Primary Care Provider [phone] Social History Tobacco Use Types Packs/Day Years [...] patient's age to complete this topic Insurance [email or web address] Care Teams Simplex Operator Relationship Specialty Start Date End Date Abram Valdez DO [address] [place] [phone] PCP - General Internal Medicine 8/10/22
--- OUTSIDE RECORDS SUMMARY | 2025-01-06 04:41 | XMS_ITS | Encounter Summary ---
Author Organization [facility] Address [address] [place] [address] Phone Care Team Providers Care Drying Machine Tender Name Role Phone Abram Valdez DO Primary Care Provider [phone] Encounter Details Date Type Department Care Team (Late st Contact Info) Description 09/09/2017 Procedure Pass OR Admitting Dept - Virtual Department [address] [place] [address] Social History Tobacco Use Types Packs/Day Years [...] on filedocumented in this encounter Care Teams Drying Machine Tender Relationship Specialty Start Date End Date Abram Valdez DO PCP - General Internal Medicine 05/29/17 documented as of this encounter Additional Source Comments The information contained in this document represents components of the legal health record. It is not the complete legal health record.[facility]
--- OUTSIDE RECORDS SUMMARY | 2025-01-06 04:41 | XMS_ITS | Encounter Summary ---
Author Organization Located Within [facility] Address [address] [facility] [address] [place] [address] Phone Care Team Providers Care Forest Law And Policy Professor Name Role Phone Abram Valdez DO Primary Care Provider [phone] Encounter Details Date Type Department Care Team (Late st Contact Info) Description 10/02/2017 Ancillary Orders [facility], X-[place] - [address] [address] Lucia Rivero PA [address] [place] [id number] [email or web address] Radiculopathy, lumbar region Social History Tobacco Use Types Packs/Day Years [...] Results * XR LUMBOSACRAL SPINE 2-3 VIEWS (10/02/2017 9:48 AM EDT) Anatomical Region Laterality Modality L-spine Radiographic Marialuisa ging 10/02/2017 10:1 1 AM EDT Impressions 10/02/2017 10:26 AM EDT New changes of spinal fusion at L2-3. No complication evident. POS - [id number] Narrative 10/02/2017 10:26 AM EDT HISTORY: 2 weeks follow-up for back surgery COMPARISON: Spot fluoroscopic postoperative views 09/09/2017, 06/18/2017 FINDINGS: AP and lateral views of the lumbar spine are performed. Interval changes of posterior spinal fusion at L2-3 with bilateral interpedicular screws. Also changes of interbody fusion from the right lateral approach with screws extending obliquely within the vertebral bodies. There is also a new disc prosthesis at this level. Lucency surrounding the pedicle screws at L3 on the lateral projection is not entirely dissimilar to the postoperative exam suggesting this is related to post-surgical change rather than loosening or infection. Stable spinal fusion changes from L3 through S1 with intervertebral disc prostheses at all levels. No new compression deformities. Moderate to large amounts of stool in the visualized colon. Procedure Note Thelma Ibanez MD - 10/02/2017 HISTORY: 2 weeks follow-up for back surgery COMPARISON: Spot fluoroscopic postoperative views 09/09/2017, 06/18/2017 FINDINGS: AP and lateral views of the lumbar spine are performed. Interval changes of posterior spinal fusion at L2-3 with bilateralinterpedicular screws. Also changes of interbody fusion from the rightlateral approach with screws extending obliquely within the vertebralbodies. There is also a new disc prosthesis at this level. Lucencysurrounding the pedicle screws at L3 on the lateral projection is notentirely dissimilar to the postoperative exam suggesting this is relatedto post-surgical change rather than loosening or infection. Stable spinal fusion changes from L3 through S1 with intervertebral discprostheses at all levels. No new compression deformities. Moderate tolarge amounts of stool in the visualized colon. IMPRESSION: New changes of spinal fusion at L2-3. No complication evident. POS - [email or web address] Lucia DOWNS IMG XR SPINE Final Resul t documented in this encounter Visit Diagnoses Diagnosis Radiculopathy, lumbar region Thoracic or lumbosacral neuritis or radiculitis, unspecified Radiculopathy, lumbar region Thoracic or lumbosacral neuritis or radiculitis, unspecified documented in this encounter Care Teams Forest Law And Policy Professor Relationship Specialty Start Date End Date Abram Valdez DO [email or web address] PCP - General Internal Medicine 05/29/17 documented as of this encounter Additional Source Comments The information contained in this document represents components of the legal health record. It is not the complete legal health record.Located Within [facility]
--- OUTSIDE RECORDS SUMMARY | 2025-01-06 04:41 | XMS_ITS | Encounter Summary ---
Author Organization Formerly [facility] Address [address] [facility] [address] [place] [phone] Phone Care Team Providers Care Bioinformatics Team Member Name Role Phone Abram Valdez DO Primary Care Provider [phone] Encounter Details Date Type Department Care Team (Latest Contact Info) Description 06/18/2017 Ancillary Orders [facility], X-Ray - [address] [address] Hugo Chavez MD [address] [place] [id number] [email or web address] Spinal stenosis of lumbar region, unspecified whether neurogenic claudication present Social History Tobacco Use Types Packs/Day Years [...] XR LUMBOSACRAL SPINE 4 OR MORE VIEWS (06/18/2017 12:19 PM EDT) Anatomical Region Laterality Modality L-spine Radiographic Marialuisa ging 06/18/2017 1:36 PM EDT Impressions 06/18/2017 3:52 PM EDT Changes of spinal fusion spanning L3-4 through L5-S1. No evidence of subluxation of L2. POS - [email or web address] Edited by: Theresa Villegas on 06/18/2017 1:58 PM Narrative 06/18/2017 3:52 PM EDT HISTORY: Low back pain. History of prior fusion 8 years ago. Recent instability at L2. COMPARISON: MRI from 06/02/2017 FINDINGS: AP view and lateral views obtained in neutral, flexion, and extension position are performed. Five lumbar type vertebral bodies. Intervertebral disc cages from L3-4 through L5-S1 with bony fusion across the disc spaces. No subluxation apparent at L2. No new compression deformities. Stable moderate disc space narrowing at L2-3. Procedure Note Thelma Ibanez MD - 06/18/2017 HISTORY: Low back pain. History of prior fusion 8 years ago. Recentinstability at L2. COMPARISON: MRI from 06/02/2017 FINDINGS: AP view and lateral views obtained in neutral, flexion, and extensionposition are performed. Five lumbar type vertebral bodies. Intervertebral disc cages from L3-4through L5-S1 with bony fusion across the disc spaces. No subluxationapparent at L2. No new compression deformities. Stable moderate discspace narrowing at L2-3. IMPRESSION: Changes of spinal fusion spanning L3-4 through L5-S1. No evidence ofsubluxation of L2. POS - [email or web address] Edited by: Theresa Villegas on 06/18/2017 1:58 PM Hugo Chavez MD IMG XR SPINE Final Res ult documented in this encounter Visit Diagnoses Diagnosis Spinal stenosis of lumbar region, unspecified whether neurogenic claudication present Spinal stenosis of lumbar region, unspecified whether neurogenic claudication present documented in this encounter Care Teams Bioinformatics Team Member Relationship Specialty Start Date End Date Abram Valdez DO [email or web address] PCP - General Internal Medicine 05/29/17 documented as of this encounter Additional Source Comments The information contained in this document represents components of the legal health record. It is not the complete legal health record.[facility]
--- OUTSIDE RECORDS SUMMARY | 2025-01-06 04:41 | XMS_ITS | Encounter Summary ---
Author Organization [facility] Address [address] [place] [address] Phone Care Team Providers Care Community Cultural Development Officer Name Role Phone Abram Valdez DO Primary Care Provider [phone] Encounter Details Date Type Department Care Team (Late st Contact Info) Description 05/29/2017 Procedure [facility], [address] [address] Social History Tobacco Use Types Packs/Day Years Used Date Smoking Tobacco: Never Assessed Sex and Gender Information Value Date Recorded Sex Assigned at Not on file Legal Sex Male 9:53 PM EDT Gender Identity Not on file Sexual Orientation Not on file documented as of this encounter Last Filed Vital Signs Vital Sign Reading Time Taken Comments Blood Pressure - - Pulse - - Temperature - - Respiratory Rate - - Oxygen Saturation - - Inhaled Oxygen Concentration - - Weight 102.1 kg (225 lb) 05/30/2017 5:55 PM EDT Height 182.9 cm (6') 05/30/2017 5:55 PM EDT Body Mass Index 30.52 05/30/2017 5:55 PM EDT documented in this encounter Plan of Treatment Not on file documented as of this encounter Visit Diagnoses Not on filedocumented in this encounter Care Teams Community Cultural Development Officer Relationship Specialty Start Date End Date Abram Valdez DO PCP - General Internal Medicine 05/29/17 documented as of this encounter Additional Source Comments The information contained in this document represents components of the legal health record. It is not the complete legal health record.[facility]
--- OUTSIDE RECORDS SUMMARY | 2025-01-06 04:41 | XMS_ITS | Continuity of Care Document ---
Author Organization [place] - [facility], [facility] Address [address] [facility] [place] [address] [place] [address] Assessment Encounter Date Assessment Date Assessment LastModified by Organization Details LastModified Time 01/05/2025 01/05/2025 [id number] [place] [id number] (MEDICAL MANAGER) MDM MODERATE MUST MEET 2 OUT OF [...] Details Appointments FOLLOW UP 15 2025 04:15P M DR ROSALES Not available Not available Not available Lab hemoglobi n A1c, QN, blood 2024 025 [facility], [address] [facility], [place], [address], 01/05/2025 16:06:19 Referral None recorded. Procedures None recorded. Surgeries None recorded. Imaging None recorded. Medication Orders terbinafi ne HCl 250 mg tablet 2024 025 [id number], [address] [place], [address], 01/05/2025 16:19:33 Patient TargetsNo targets recorded. Patient InstructionsNo instructions recorded. Reason for Referral None Reported. Problems Name Problem SNOMED Code Status Onset Date Resolution Date Notes Provider Name and Address Organization Details Recorded Time Scott quigley 440844826 Active 2017 Not Available [facility] 0 12:01:56 Type 2 diabetes mellitus 02771611 Active 2017 Not Available [facility] 0 12:01:56 Disorder of vitamin B12 387894696 Active 2017 Not Available [facility] 0 12:01:56 Tremor 72357932 Active 2017 Not Available [facility] 0 12:01:56 Restless legs syndrome 45504279 Active 2017 Not Available [facility] 0 12:01:56 Hypertens daysi disorder 18878442 Active 2017 Not Available [facility] 0 12:01:56 Subclinic al hypothyro idism 66176158 Active 2017 Not Available [facility] 0 12:01:56 Degenerat ion of lumbar intervert ebral disc 98392237 Active 2017 Not Available [facility] 0 12:01:56 Spinal stenosis of lumbar region 94621282 Active 2017 Not Available [facility] 0 12:01:56 Diabetic periphera l neuropath y 344312456 Active 2021 Abram Rosales DO [address] [place] [address], [phone], [facility] 2 16:02:07 Erectile dysfuncti on 286388126 Active 2021 Abram Rosales DO [address] [place] [address], [address], [facility] 2 16:21:24 Microalbu minuric diabetic nephropat hy 089964079 Active 2021 Abram Rosales DO [address] [place] [address], [address], [facility] 2 16:23:31 Contractu re of joint of finger 278715367 Active 2022 Abram Rosales, DO [address] [place] [address], [address], [facility] 3 16:28:46 Hyperlipi demia 63052697 Active 2022 Abram Rosales, DO [address] [place] [address], [address], [facility] 3 16:31:38 Depressiv e disorder 79274421 Active 2022 Abram Rosales DO [address] [place] [address], [address], [facility] 3 16:32:43 COVID-19 490218478 Active 2023 HIMANSHU HEALY [address] [place] [address], [address], [facility] 4 09:57:50 Chest pain on exertion 70438054 Active 2024 Abram Rosales DO [address] [place] [address], [address], [facility] 5 10:13:16 New onset angina 021221144 Active 2024 Abram Rosales DO [address] [place] [address], [address], [facility] 5 12:38:52 Left carotid artery stenosis 657496631157 103 Active 2024 Abram Rosales DO [address] [place] [address], [address], [facility] 5 14:50:56 Onychomyc osis of nail of digit 334778718 Active 2024 Abram Rosales DO [address] [place] [address], [address], [facility] 5 16:03:28 Problem Notes None [...] Not Available Not Available No t Available Febuvia 100 mg tablet 1 po daily 09/16 [...] Updated DateTime 5 179.71 cm 28.8 kg/m2 83883.4 4 g 64 /min 98 % 98 % 98/62 mm[Hg] Jaylin Sweeney [facility] 5 15:48:59 Social History Question Answer Notes LastModified by Organizat ion Details LastModified Time Tobacco Smoking Status Former Smoker Not Available [facility] 12/21/2019 03:36:24 What Was The Date Of Your Most Recent Tobacco Screening? 01/05/2025 Information not available 01/05/2025 Sex: Unknown Functional [...] 50 mcg/0.25mL dose 05/08/19 21 completed Abram Rosales, DO [address] [facility], [place], [address], [facility] 08/28/2020 16:16:45 influenza, unspecified formulation 04/25/19 completed Barbara smith, [facility] 04/26/2024 09:11:10 SARS-COV-2 (COVID-19) vaccine, UNSPECIFIED [facility]/25/[facility] 09:11:19 Influenza, split virus, quadrivalent, preservative 01/30/20 completed Vanesa smith, [facility] 01/31/2020 13:33:40 Tdap 01/30/20 completed Vanesa smith, [facility] 01/31/2020 13:34:29 zoster recombinant 01/30/20 completed Vanesa smith, [facility] 01/31/2020 13:35:09 pneumococcal polysaccharide PPV23 [facility]30[facility] 13:37:05 COVID-19, mRNA, LNP-S, PF, 100 mcg/0.5mL dose or 50 mcg/0.25mL dose 04/16/19 completed Abram Rosales DO [address] [place] [address], [phone], [facility] 04/21/2020 16:15:37 Past Encounters Encounter ID Performer Location Encounter Start Date Encounter Closed Date Diagnosis/Indication Diagnosis SNOMED-CT Code Diagnosis ICD10 Code Diagnosis IMO Codes Diagnosis Note [id number] Abram Rosales DO [facility] [address] [place] [address],[place] [address] 01/05/2025 15:40:27 01/05/2025 16:06:17 Depression screening 889273762 Z13.31 SCREENING NEGATIVE Hypertensive disorder 38 733648 I10 excellent result no change in meds will need to chk cmp Hyperlipidemia 65662355 E78.5 will rechk Type 2 vern betes mellitus 93477363 E11.21 needs a1c a1c is 6.2 was 8.3 and is up from 7.9 Onychomyco sis of nail of digit 610077844 B35.6 [id number] Health Concerns Section Related Observation LastModified by Organization Detai ls LastModified Time None Recorded Concern Status LastModified by Organization Details LastModified Time None Recorded Payers Encounter Date Sequence Insurance Name Policy Number Policy Coombs Covered Member ID Coombs Member ID Guarantor Name 01/05/2025 1 [employer] 9 Malcolm Tanner [id number] Malcolm Tanner Notes Date Note Type Note Provider Name and Address Organization Details Recorded Time 01/06/20 25 text/htm l Care Management - [...] [id number] as noted in the HPI Abram Rosales DO [address] [facility], [place], [address], [facility] 01/05/2025 16:06:16
== END 2025-01-05 16:08 | disposition home or self-care (01) ==
LOC: HO.MANLDS 16:07
PROVIDERS: Visit Provider Internal Medicine
DX: E11.21 Type 2 diabetes mellitus with diabetic nephropathy (principal)
CPT/HCPCS: 36415; 83036